=== PATIENT | female | born 2000 | race Two or more races ===

== ENCOUNTER 2024-12-12 00:05 | Emergency (ER) | payer MEDICAID, OTHER, SELFPAY ==
--- NOTE | ~2024-12-12 | XR_ITS ---
CLINICAL HISTORY: 4th toe swelling 3 views left foot Comparison: None Findings: There is no fracture or dislocation. Joint spaces appear normal. There is no radiographic evidence of osteomyelitis.There is no radiopaque foreign body. Impression: Unremarkable left foot radiographs. This document has been electronically signed by: Lon Beaulieu MD on 12/12/2024 03:30:03
[2024-12-12 00:25] VITALS: BP 110/61; PULSE 91; RESP 14; TEMP 37; O2SAT 98; BMI 20.1
--- NOTE | 2024-12-12 02:03 | ED_ITS ---
HPI - Extremity Injury (Lower) General Chief Complaint: Extremity Injury, Lower Stated Complaint: left foot 4th toe hurts Time Seen by Provider: 12/12/24 01:54 Source: patient Mode of arrival: ambulatory Limitations: no limitations History of Present Illness ED Provider: Dr. Anjelica Honeycutt HPI Narrative: Patient comes to the emergency room complaining of pain redness and swelling of the 4th toe on the left foot. Patient denies any injury. Patient states that it is very itchy and it hurts. Patient denies fever chills. Patient denies any localized trauma. Patient states that wearing shoes hurts Related Data Previous Rx's ?Medication ?Instructions ?Recorded cefuroxime axetil 500 mg tablet 500 mg PO BID #14 tabs 12/12/24 doxycycline hyclate 100 mg tablet 100 mg PO BID #14 tabs 12/12/24 Allergies Allergy/AdvReac Type Severity Reaction Status Date / Time No Known Allergies Allergy Verified 12/12/24 00:28 Review of Systems 2 Review of Systems: Constitutional : No Weight loss, No Fever, No Chills, No Night Sweats, No Fatigue, No Malaise ENT/Mouth : No Hearing loss, No Ear Pain, No Nasal Congestion, No Sinus Pain, No Hoarseness, No sore throat, No Rhinorrhea, No Swallowing Difficulty Eyes: No Eye Pain, No Swelling, No Redness, No Foreign Body, No Discharge, No Vision Changes Cardiovascular : No Chest Pain, No SOB, No Dyspnea on Exertion, No Orthopnea, No Edema, No Palpitations Respiratory : No Cough, No Sputum, No Wheezing, No Smoke Exposure, No Dyspnea Gastrointestinal : No Nausea, No Vomiting, No Diarrhea, No Constipation, No abdominal Pain, No Hematochezia, No Melena Genitourinary : no irregular bleeding, No Dysuria, No Urinary Frequency, No Hematuria, No Urinary Incontinence, No Urgency, No Flank Pain, No Urinary Flow Changes, No Hesitancy Musculoskeletal : No joint pain, No Myalgias, No Joint Swelling Skin : Complaining of left 4th toe pain swelling and itching Neuro : No Weakness, No Numbness, No Paresthesias, No Loss of Consciousness, No Dizziness, No Headache Psych : No Anxiety/Panic, No Depression, No SI/HI/AH/VH, No Social Issues, Heme/Lymph: No Bruising, No Bleeding,No Lymphadenopathy Endocrine : No Polyuria, No Polydipsia, No Temperature Intolerance [facility] Social History Social History Smoked in Last 30 Days: No Use of substances other than those prescribed or required for medical reasons: No Advance Directives: No Advance Directives Information Provided: Yes Do you have a plan to hurt others: No Plan Physical Exam 2 Vital Signs: Vital Signs: Last Vital Signs Temp 98.6 F 12/12/24 00:25 Pulse 91 12/12/24 00:25 Resp 14 12/12/24 00:25 BP 110/61 12/12/24 00:25 Pulse Ox 98 12/12/24 00:25 O2 Del Method Room Air 12/12/24 00:25 BMI result Body Mass Index 20.1 Const: Other: Appearance: Alert. Oriented X3. No acute distress. Eyes: Pupils equal, round and reactive to light. ENT: Pharynx normal. Neck: Normal inspection. Neck supple. No lymph nodes noted. No crepitus CVS: Normal heart rate and rhythm. Pulses normal. Normal S1 and S2 Respiratory: No respiratory distress. Breath sounds normal. No Wheezing. No rales Abdomen: Soft and nontender. No rigidity. No distention. Skin: Skin warm and dry. Normal skin color. Normal skin turgor. See extremities below Extremities: No lower extremity edema. No Lacerations. No Rash. Patient's 4th toe on the left foot on the dorsum looks erythematous, small fluctuance present on the dorsum of the toe, tender to palpation. Neuro: Oriented X 3. No motor deficit. No sensory deficit. Moving all extremities. No slurred speech. CN 2 through 12 grossly intact Psych: calm, cooperative, normal affect Course Course Course Narrative: X-rays and labs pending Medical Decision Making Medical Decision Making [facility] Narrative: Patient's white blood cell count 11.4 chemistry does not show any acute abnormality, ESR and CRP slightly bumped. Dorsum of the toe of the left foot has a bit of fluid in the dorsum. Patient was numbed with 1% lidocaine 1 mL, 2 mm incision was done, only serosanguineous fluid was drained. No pus. Patient was given the 1st dose of doxycycline and cefuroxime p.o.. Patient instructed to not use toes are close toe shoes Lab Data [facility] Lab Attestation statement: I reviewed the patient's lab results. 12/12/24 02:26 12/12/24 02:26 Labs: Lab Results 12/12/24 Range/Units 02:26 WBC 11.4 H (4.8-10.8) X10*3/uL RBC 4.44 (4.20-5.50) X10*6/uL Hgb 11.7 L (12.0-16.0) g/dl Hct 35.0 L (37.0-47.0) % MCV 78.8 L (80.0-98.0) fL MCH 26.4 L (27.0-33.0) pg MCHC 33.4 (31.0-35.0) g/dl RDW 12.8 (11.0-16.0) % Plt Count 188 (160-400) X10*3/uL MPV 11.7 (9.4-12.3) fL Immature Gran % (Auto) 0.4 (0.0-0.4) % Neut % (Auto) 69.6 (45-73) % Lymph % (Auto) 20.2 (20-40) % [place] % (Auto) 8.7 (2-11) % Eos % (Auto) 0.9 (0-4) % Baso % (Auto) 0.2 (0-2) % Lymph # (Auto) 2.3 (1.2-4.9) X10*3/uL [place] # (Auto) 1.0 (0.1-1.2) X10*3/uL Eos # (Auto) 0.1 (0.0-0.4) X10*3/uL Baso # (Auto) 0.0 (0.0-0.2) X10*3/uL Abs Immat Gran (auto) 0.04 H (0.00-0.03) X10*3/uL Absolute Neuts (auto) 8.0 (2.0-8.3) x10*3/uL Absolute Nucleated RBC 0.000 (0.0-0.012) X10*3/uL Nucleated RBC % (auto) 0.0 (0.0-0.2) /100WBC ESR 7 (0-20) MM/HR Sodium 139 (135-145) mmol/L Potassium 3.8 (3.3-5.1) mmol/L Chloride 111 H (96-108) mmol/L Carbon Dioxide 19 L (22-29) mmol/L Anion Gap 13 (12-20) BUN 14 (9-16) mg/dL Creatinine 0.62 (0.5-1.4) mg/dL Estim Creat Clear Calc 125.0 Estimated GFR > 60 Random Glucose 110 (60-115) mg/dL Uric Acid 3.4 (2.4-5.7) mg/dL Calcium 8.9 (8.4-10.2) mg/dL C-Reactive Protein 2.18 H (< or = 0.50) mg/dL Discharge Plan Discharge Clinical Impression: Cellulitis of fourth toe Patient Disposition: Home, Self-Care Instructions: Cellulitis (ED) Additional Instructions: Please follow-up with your primary care physician tomorrow. If you have any worsening or new symptoms, please return to the emergency room or call 911 Prescriptions: New doxycycline hyclate 100 mg tablet 100 mg PO BID Qty: 14 0RF cefuroxime axetil 500 mg tablet 500 mg PO BID Qty: 14 0RF Print Language: Maori
[2024-12-12 02:32] LABS: Basophils Percent Auto 0.2 % (0-2); Eosinophils Absolute Auto 0.1 X10*3/uL (0.0-0.4); Eosinophils Percent Auto 0.9 % (0-4); Hemoglobin 11.7 g/dl (12.0-16.0); Imm Gran Abs Auto 0.04 X10*3/uL (0.00-0.03); Imm Gran Pct Auto 0.4 % (0.0-0.4); Lymphocytes Absolute Auto 2.3 X10*3/uL (1.2-4.9); Lymphocytes Percent Auto 20.2 % (20-40); MANUAL DIFF FLAG NO; Mean Corpuscular HGB Conc 33.4 g/dl (31.0-35.0); Mean Corpuscular Hemoglobin 26.4 pg (27.0-33.0); Mean Corpuscular Volume 78.8 fL (80.0-98.0); Mean Platelet Volume 11.7 fL (9.4-12.3); Monocytes Percent Auto 8.7 % (2-11); Neutrophils Percent Auto 69.6 % (45-73); Platelet Count 188 X10*3/uL (160-400); Red Blood Count 4.44 X10*6/uL (4.20-5.50); Red Cell Distribution Width 12.8 % (11.0-16.0); White Blood Count 11.4 X10*3/uL (4.8-10.8)
[2024-12-12 02:46] LABS: Anion Gap 13 (12-20); Blood Urea Nitrogen 14 mg/dL (9-16); C Reactive Protein 2.18 mg/dL (< or = 0.50); Calcium 8.9 mg/dL (8.4-10.2); Carbon Dioxide 19 mmol/L (22-29); Chloride 111 mmol/L (96-108); Estimated Glomerular Filt Rate > 60; Glucose Random 110 mg/dL (60-115); Potassium 3.8 mmol/L (3.3-5.1); Sodium 139 mmol/L (135-145); Uric Acid 3.4 mg/dL (2.4-5.7)
[2024-12-12 03:09] LABS: Erythrocyte Sedimentation Rate 7 MM/HR (0-20)
[2024-12-12] MEDS: Lidocaine HCl 1 % MPF 5 ML VIAL SUBCUT (04:29)
[2024-12-12] MEDS: cefuroxime axetiL 500 MG TABLET PO (04:30)
[2024-12-12] MEDS: Doxycycline Monohydrate 100 MG CAPSULE PO (04:30)
[2024-12-12 04:32] VITALS: BP 104/58; PULSE 89; RESP 12; TEMP 36.9; O2SAT 100
[2024-12-12 04:36] VITALS: BP 104/58; PULSE 89; RESP 12; TEMP 36.9; O2SAT 100
== END 2024-12-12 04:38 | disposition home or self-care (01) ==
PROVIDERS: Emergency Provider Emergency Medicine
DX: L03.032 Cellulitis of left toe (principal); M79.675 Pain in left toe(s)
CPT/HCPCS: 10060; 36415; 73630; 80048; 84550; 85025; 85652; 86140; 99284; J2003

== ENCOUNTER → 2024-12-12 00:30 | Outpatient (BNV) | payer SELFPAY | PROVIDERS: Emergency Provider Emergency Medicine; Visit Provider Radiology Diagnostic Radiology | DX: R22.42 Localized swelling, mass and lump, left lower limb (principal) | CPT/HCPCS: 73630 ==

== ENCOUNTER 2024-12-16 19:30 | Outpatient (REF) | payer MEDICAID, OTHER, SELFPAY | END 2024-12-16 19:31 | disposition home or self-care (01) | LOC: HO.LNP 19:30 | PROVIDERS: Visit Provider Emergency Medicine | DX: R23.8 Other skin changes (principal); R89.5 Abnormal microbiological findings in specimens from other organs, systems and tissues | CPT/HCPCS: 87070; 87077; 87147; 87186; 87205 ==

== ENCOUNTER 2024-12-16 20:18 | Emergency (ER) | payer MEDICAID, OTHER, SELFPAY ==
[2024-12-16 20:21] VITALS: BP 118/53; PULSE 89; RESP 18; TEMP 37.1; O2SAT 100; BMI 21.8
--- NOTE | 2024-12-16 20:22 | ED_ITS ---
HPI - General Adult General Chief complaint: Skin/Abscess/Foreign Body Stated complaint: itchy toes Time Seen by Provider: 12/16/24 22:51 Related Data Previous Rx's ?Medication ?Instructions ?Recorded cefuroxime axetil 500 mg tablet 500 mg PO BID #14 tabs 12/12/24 doxycycline hyclate 100 mg tablet 100 mg PO BID #14 tabs 12/12/24 bacitracin 500 unit/gram topical 1 appl topical BID skin rash #14 12/17/24 ointment grams clindamycin HCl 300 mg capsule 300 mg PO Q6H Cellulitis #30 caps 12/17/24 Allergies Allergy/AdvReac Type Severity Reaction Status Date / Time No Known Allergies Allergy Verified 12/16/24 20:23 PMFSH Social History Social History Advance Directives: No Advance Directives Information Provided: No Do you have a plan to hurt others: No Plan Physical Exam ED Vital Signs: Vital Signs - 24 hr 12/16/24 20:21 Temperature 98.8 F Pulse Rate 89 Respiratory Rate 18 Blood Pressure 118/53 L Pulse Oximetry 100 Oxygen Delivery Method Room Air BMI result Body Mass Index 21.8 Course Course Course Narrative: This is a rapid medical exam performed by Irma Bradford NP: Additional HPI, ROS, PE not included below will be deferred to primary provider. Patient is a 24-year-old female referred to the ED by PCP for evaluation of cellulitis to left foot/4th toe. Has been on Ceftin and doxy, but erythema spreading. Plan: labs Medical Decision Making Lab Data 12/16/24 20:46 12/16/24 20:46 Labs: Lab Results 12/16/24 Range/Units 20:46 WBC 7.5 (4.8-10.8) X10*3/uL RBC 4.44 (4.20-5.50) X10*6/uL Hgb 11.7 L (12.0-16.0) g/dl Hct 35.3 L (37.0-47.0) % MCV 79.5 L (80.0-98.0) fL MCH 26.4 L (27.0-33.0) pg MCHC 33.1 (31.0-35.0) g/dl RDW 12.8 (11.0-16.0) % Plt Count 211 (160-400) X10*3/uL MPV 11.8 (9.4-12.3) fL Immature Gran % (Auto) 0.3 (0.0-0.4) % Neut % (Auto) 67.1 (45-73) % Lymph % (Auto) 23.5 (20-40) % [place] % (Auto) 8.6 (2-11) % Eos % (Auto) 0.4 (0-4) % Baso % (Auto) 0.1 (0-2) % Lymph # (Auto) 1.8 (1.2-4.9) X10*3/uL [place] # (Auto) 0.7 (0.1-1.2) X10*3/uL Eos # (Auto) 0.0 (0.0-0.4) X10*3/uL Baso # (Auto) 0.0 (0.0-0.2) X10*3/uL Abs Immat Gran (auto) 0.02 (0.00-0.03) X10*3/uL Absolute Neuts (auto) 5.1 (2.0-8.3) x10*3/uL Absolute Nucleated RBC 0.000 (0.0-0.012) X10*3/uL Nucleated RBC % (auto) 0.0 (0.0-0.2) /100WBC ESR 6 (0-20) MM/HR Sodium 138 (135-145) mmol/L Potassium 3.6 (3.3-5.1) mmol/L Chloride 110 H (96-108) mmol/L Carbon Dioxide 22 (22-29) mmol/L Anion Gap 10 L (12-20) BUN 16 (9-16) mg/dL Creatinine 0.64 (0.5-1.4) mg/dL Estim Creat Clear Calc 126.8 Estimated GFR > 60 Random Glucose 86 (60-115) mg/dL Calcium 9.5 D (8.4-10.2) mg/dL Total Bilirubin 0.2 (0.0-1.0) mg/dL AST 21 (5-31) U/L ALT 16 (0-31) U/L Alkaline Phosphatase 63 (39-117) U/L C-Reactive Protein 0.23 (< or = 0.50) mg/dL Total Protein 7.4 (6.5-8.0) g/dL Albumin 4.3 (3.5-5.0) g/dL Discharge Plan Discharge Clinical Impression: Cellulitis Patient Disposition: Home, Self-Care Instructions: Cellulitis (ED) Additional Instructions: elevate warm soak. Close follow-up on an outpatient basis. Prescriptions: New clindamycin HCl 300 mg capsule 300 mg PO Q6H Qty: 30 0RF bacitracin 500 unit/gram ointment 1 appl topical BID Qty: 14 0RF No Action doxycycline hyclate 100 mg tablet 100 mg PO BID Qty: 14 0RF cefuroxime axetil 500 mg tablet 500 mg PO BID Qty: 14 0RF Referrals: [facility] [Physician] - 12/21/24 Print Language: Persian
[2024-12-16 20:52] LABS: MANUAL DIFF FLAG NO
[2024-12-16 20:54] LABS: Basophils Percent Auto 0.1 % (0-2); Eosinophils Percent Auto 0.4 % (0-4); Hematocrit 35.3 % (37.0-47.0); Hemoglobin 11.7 g/dl (12.0-16.0); Imm Gran Abs Auto 0.02 X10*3/uL (0.00-0.03); Imm Gran Pct Auto 0.3 % (0.0-0.4); Lymphocytes Absolute Auto 1.8 X10*3/uL (1.2-4.9); Lymphocytes Percent Auto 23.5 % (20-40); Mean Corpuscular HGB Conc 33.1 g/dl (31.0-35.0); Mean Corpuscular Hemoglobin 26.4 pg (27.0-33.0); Mean Corpuscular Volume 79.5 fL (80.0-98.0); Mean Platelet Volume 11.8 fL (9.4-12.3); Monocytes Absolute Auto 0.7 X10*3/uL (0.1-1.2); Monocytes Percent Auto 8.6 % (2-11); Neutrophils Absolute Auto 5.1 x10*3/uL (2.0-8.3); Neutrophils Percent Auto 67.1 % (45-73); Platelet Count 211 X10*3/uL (160-400); Red Blood Count 4.44 X10*6/uL (4.20-5.50); Red Cell Distribution Width 12.8 % (11.0-16.0); White Blood Count 7.5 X10*3/uL (4.8-10.8)
[2024-12-16 21:09] LABS: Alanine Aminotransferase 16 U/L (0-31); Albumin Level 4.3 g/dL (3.5-5.0); Alkaline Phosphatase 63 U/L (39-117); Anion Gap 10 (12-20); Aspartate Amino Transferase 21 U/L (5-31); Bilirubin Total 0.2 mg/dL (0.0-1.0); Blood Urea Nitrogen 16 mg/dL (9-16); C Reactive Protein 0.23 mg/dL (< or = 0.50); Calcium 9.5 mg/dL (8.4-10.2); Carbon Dioxide 22 mmol/L (22-29); Chloride 110 mmol/L (96-108); Creatinine Clr Calc Pharmacy 126.8; Estimated Glomerular Filt Rate > 60; Glucose Random 86 mg/dL (60-115); Potassium 3.6 mmol/L (3.3-5.1); Sodium 138 mmol/L (135-145); Total Protein 7.4 g/dL (6.5-8.0)
[2024-12-16 21:40] LABS: Erythrocyte Sedimentation Rate 6 MM/HR (0-20)
--- NOTE | 2024-12-17 00:19 | ED_ITS ---
HPI - Skin/Abscess/Foreign Bdy General Chief complaint: Skin/Abscess/Foreign Body Stated complaint: itchy toes Time Seen by Provider: 12/16/24 22:51 History of Present Illness HPI narrative: patient is a 24-year-old female was seen on the for a extensor surface left toe lesion. Had an I&D done. Placed on cefuroxime and doxycycline. Patient went to follow-up with her primary. Was noted to have redness now in digits 2 through 5. The 4th toe looks about the same. There is no systemic effect. No fever no chills. Patient is from home. Came from [facility] about a year ago. Lives in this area. Works in a restaurant. No nausea no vomiting. Patient is from home. Related Data Previous Rx's ?Medication ?Instructions ?Recorded cefuroxime axetil 500 mg tablet 500 mg PO BID #14 tabs 12/12/24 doxycycline hyclate 100 mg tablet 100 mg PO BID #14 tabs 12/12/24 clindamycin HCl 300 mg capsule 300 mg PO Q6H Cellulitis #30 caps 12/17/24 Allergies Allergy/AdvReac Type Severity Reaction Status Date / Time No Known Allergies Allergy Verified 12/16/24 20:23 Review of Systems 2 Review of Systems: No fever no chills no chest pain or shortness of breath Yes all other systems are reviewed and are negative [facility] Past Medical History Attestation statement: The following information was validated with the patient. Social History Social History Advance Directives: No Advance Directives Information Provided: No Do you have a plan to hurt others: No Plan Physical Exam 2 Vital Signs: Vital Signs: Last Vital Signs Temp 98.8 F 12/16/24 20:21 Pulse 89 12/16/24 20:21 Resp 18 12/16/24 20:21 BP 118/53 L 12/16/24 20:21 Pulse Ox 100 12/16/24 20:21 O2 Del Method Room Air 12/16/24 20:21 BMI result Body Mass Index 21.8 Appearance: Alert. Oriented X3. No acute distress. Eyes: Pupils equal, round and reactive to light. ENT: Pharynx normal. Neck: Normal inspection. Neck supple. No lymph nodes noted. No crepitus CVS: Normal heart rate and rhythm. Pulses normal. Normal S1 and S2 Respiratory: No respiratory distress. Breath sounds normal. No Wheezing. No rales Abdomen: Soft and nontender. No rigidity. No distention. good BS x4 Skin: Skin warm and dry. Normal skin color. Normal skin turgor. Extremities: No lower extremity edema. examination of the left foot showed good sensation in the foot. Capillary refill less than 2 seconds. There is good pulses at dorsalis pedis 2+. The distal extensor surface of the 4th toe has an area of redness. There is no purulent discharge noted. The 2nd,3rd, Fifth toe extensor surface have some redness. blanching. Neuro: Oriented X 3. No motor deficit. No sensory deficit. Moving all extermities. No slurred speech Medical Decision Making Medical Decision Making [facility] Narrative: Positive redness to now digits 2 through 5. However patient's white count is normal. Patient's sed rate and CRP are both normal. Had x-ray done a few days ago there were grossly negative. Patient is 24 years old otherwise healthy. No significant past medical history. Will start patient on clindamycin. Have patient closely follow up on an outpatient basis. Currently in stable condition. Patient has good pulses. Good sensation. Good motor. In no acute distress. Differential Diagnosis Differential Diagnoses: The differential diagnosis associated with the presentation includes Cellulitis versus abscess Admission/Observation Consideration of admission/observation: Escalation of care including admission/observation considered Lab Data [facility] Lab Attestation statement: I reviewed the patient's lab results. 12/16/24 20:46 12/16/24 20:46 Labs: Lab Results 12/16/24 Range/Units 20:46 WBC 7.5 (4.8-10.8) X10*3/uL RBC 4.44 (4.20-5.50) X10*6/uL Hgb 11.7 L (12.0-16.0) g/dl Hct 35.3 L (37.0-47.0) % MCV 79.5 L (80.0-98.0) fL MCH 26.4 L (27.0-33.0) pg MCHC 33.1 (31.0-35.0) g/dl RDW 12.8 (11.0-16.0) % Plt Count 211 (160-400) X10*3/uL MPV 11.8 (9.4-12.3) fL Immature Gran % (Auto) 0.3 (0.0-0.4) % Neut % (Auto) 67.1 (45-73) % Lymph % (Auto) 23.5 (20-40) % [place] % (Auto) 8.6 (2-11) % Eos % (Auto) 0.4 (0-4) % Baso % (Auto) 0.1 (0-2) % Lymph # (Auto) 1.8 (1.2-4.9) X10*3/uL [place] # (Auto) 0.7 (0.1-1.2) X10*3/uL Eos # (Auto) 0.0 (0.0-0.4) X10*3/uL Baso # (Auto) 0.0 (0.0-0.2) X10*3/uL Abs Immat Gran (auto) 0.02 (0.00-0.03) X10*3/uL Absolute Neuts (auto) 5.1 (2.0-8.3) x10*3/uL Absolute Nucleated RBC 0.000 (0.0-0.012) X10*3/uL Nucleated RBC % (auto) 0.0 (0.0-0.2) /100WBC ESR 6 (0-20) MM/HR Sodium 138 (135-145) mmol/L Potassium 3.6 (3.3-5.1) mmol/L Chloride 110 H (96-108) mmol/L Carbon Dioxide 22 (22-29) mmol/L Anion Gap 10 L (12-20) BUN 16 (9-16) mg/dL Creatinine 0.64 (0.5-1.4) mg/dL Estim Creat Clear Calc 126.8 Estimated GFR > 60 Random Glucose 86 (60-115) mg/dL Calcium 9.5 D (8.4-10.2) mg/dL Total Bilirubin 0.2 (0.0-1.0) mg/dL AST 21 (5-31) U/L ALT 16 (0-31) U/L Alkaline Phosphatase 63 (39-117) U/L C-Reactive Protein 0.23 (< or = 0.50) mg/dL Total Protein 7.4 (6.5-8.0) g/dL Albumin 4.3 (3.5-5.0) g/dL External Record Review External record reviewed: Outpatient record Social Determinants Patient?s care significantly limited by Social Determinants of Health including: Problems related to primary support group Discharge Plan Discharge Clinical Impression: Cellulitis Patient Disposition: Home, Self-Care Instructions: Cellulitis (ED) Additional Instructions: elevate warm soak. Close follow-up on an outpatient basis. Prescriptions: New clindamycin HCl 300 mg capsule 300 mg PO Q6H Qty: 30 0RF No Action doxycycline hyclate 100 mg tablet 100 mg PO BID Qty: 14 0RF cefuroxime axetil 500 mg tablet 500 mg PO BID Qty: 14 0RF Referrals: [facility] [Physician] - 12/21/24 Print Language: Latvian
[2024-12-17 00:57] VITALS: BP 118/53; PULSE 89; RESP 18; TEMP 37.1; O2SAT 100
== END 2024-12-17 00:58 | disposition home or self-care (01) ==
PROVIDERS: Registered Nurse Emergency; Emergency Provider Emergency Medicine Emergency Medical Services
DX: L03.032 Cellulitis of left toe (principal); L29.9 Pruritus, unspecified; Z79.899 Other long term (current) drug therapy
CPT/HCPCS: 36415; 80053; 85025; 85652; 86140; 99283; 99284

== ENCOUNTER 2025-02-03 10:33 | Outpatient (REF) | payer MEDICAID, OTHER, SELFPAY ==
[2025-02-03 11:51] LABS: MANUAL DIFF FLAG NO
[2025-02-03 12:01] LABS: Basophils Percent Auto 0.2 % (0-2); Eosinophils Absolute Auto 0.1 X10*3/uL (0.0-0.4); Eosinophils Percent Auto 1.2 % (0-4); Hematocrit 39.2 % (37.0-47.0); Hemoglobin 12.6 g/dl (12.0-16.0); Imm Gran Abs Auto 0.01 X10*3/uL (0.00-0.03); Imm Gran Pct Auto 0.2 % (0.0-0.4); Lymphocytes Absolute Auto 1.4 X10*3/uL (1.2-4.9); Lymphocytes Percent Auto 26.7 % (20-40); Mean Corpuscular HGB Conc 32.1 g/dl (31.0-35.0); Mean Corpuscular Hemoglobin 26.4 pg (27.0-33.0); Mean Corpuscular Volume 82.2 fL (80.0-98.0); Mean Platelet Volume 12.5 fL (9.4-12.3); Monocytes Absolute Auto 0.4 X10*3/uL (0.1-1.2); Monocytes Percent Auto 8.6 % (2-11); Neutrophils Absolute Auto 3.3 x10*3/uL (2.0-8.3); Neutrophils Percent Auto 63.1 % (45-73); Platelet Count 186 X10*3/uL (160-400); Red Blood Count 4.77 X10*6/uL (4.20-5.50); Red Cell Distribution Width 13.4 % (11.0-16.0); White Blood Count 5.1 X10*3/uL (4.8-10.8)
--- OUTSIDE RECORDS SUMMARY | 2025-02-03 12:11 | XMS_ITS | Clinical Summary ---
Author Organization [employer] Address [address] [place] [address] Care Team Providers Care Propagator Laborer Name Role Phone Karen Regalado MD Primary Care Provider + Allergies No known active allergies Medications norelgestromin-e thinyl estradiol (Xulane) 150-35 MCG/24HR Apply 1 patch each week for 3 weeks, then remove for 1 week. 3 patch 12 02/03/2025 Active Active Problems Problem Noted Date Diagnosed Date Contraceptive education 02/03/2025 Assessment & Plan (02/03/2025 12:05 PM EDT): I discussed with patient at length regarding different type of contraceptives including barrier, hormonal and nonhormonal. She decided to start her on hormonal patch and I gave her information for IUD and Nexplanon and I will follow-up with her in 6 to 8 weeks to see if she wants to be referred to any of these procedures. I have stressed the importance of using condoms at all times in order to prevent STDs Order labs and follow-up with me in 6 to 8 weeks Anemia 12/16/2024 Assessment & Plan (02/03/2025 12:04 PM EDT): Order labs and follow-up in 6 to 8 weeks Encounters Date Type Department Care Team Description 02/03/2025 9:30 AM EDT Office Visit [facility] [address] [place] [address] Karen Regalado MD Anemia, unspecified type (Primary Dx); Contraceptive education 02/03/2025 Travel 02/01/[address] [address] Jacquelyn Gonzalez MA Chart prep 01/27/2025 Patient Outreach [facility] [address] [place] [address] Karen Regalado MD Pre-visit Planning (SDOH unable to reach LVM ) 12/24/[address] [address] Jacquelyn Gonzalez MA Appointment Request 12/17/2024 Telephone [facility] [address] [place] [phone] Gabby Moeller, JAMES Results; [facility] eval 12/16/24 12/17/2024 Patient Outreach [address] [address] Karen Regalado MD Pre-visit Planning ((Unable to reach for PVP screening, LVM)) 12/16/2024 6:00 PM EST Office Visit [facility] [address] [place] [phone] Moshe Pozo MD Change of skin color (Primary Dx) 12/16/2024 Orders Only [facility] [address] [place] [phone] Moshe Pozo MD 11/16/[address] [phone] Karen Regalado MD New pt appt from Last 3 Months Family History Medical History Relation Name Comments No Known Problems Father htn Mother Relation Name Status Comments Father Mother Social History Tobacco Use Types Packs/Day Years Used Date Smoking Tobacco: Never Smokeless Tobacco: Never Tobacco Cessation:Counseling Given: Not Answered Alcohol Use Standard Drinks/Week Comments Yes 0 (1 standard drink = 0.6 oz pur e alcohol) social, few times per year Housing Stability Answer Date Recorded What is your housing situation today? I have johnny ellen 02/03/[address] you li ve. Do you have problems with any of the following? None of the above 02/03/2025 Food Insecurity Answer Date Recorded Within the past 12 months, y ou worried that your food would run out before you got money to buy more: Never True 02/03/2025 Within the past 12 months,th e food you bought just didn't last and you didn't have enough money to get more: Never True 10/2025 Transportation Answer Date Recorded In the past 12 months, has l ack of transportation kept you from medical appts, meetings, work or from getting things needed for daily living? No 02/03/2025 Utilities Answer Date Recorded In the past 12 months, has t he electric, gas, oil or water company threatened to shut off services in your home? No 02/03/2025 Depression Answer Date Recorded Patient Health Questionnaire-2 Score 0 02/03/2025 Internet Access Answer Date Recorded Internet Access Q1 No 02/03/2025 Internet Access Q2 I do not want or need it 01/23 Comments No Sex and Gender Information Value Date Recorded Sex Assigned at Female 05/22/2024 8:58 AM EDT Legal Sex Female 9:26 AM EDT Gender Identity Female 05/22/2024 8:58 AM EDT Sexual Orientation Something else 02/02/2025 9: 27 PM EDT Sexual Orientation Straight 02/02/2025 9: 27 PM EDT Last Filed Vital Signs Vital Sign Reading Time Taken Comments Blood Pressure 113/64 02/03/2025 9:20 AM EDT Pulse 79 02/03/2025 9:20 AM EDT Temperature 35.3 ??C (95.6 ??F) 02/03/2025 9:20 AM ED T Respiratory Rate 20 12/16/2024 6:21 PM EST Oxygen Saturation 100% 02/03/2025 9:20 AM EDT Inhaled Oxygen Concentration - - Weight 55.1 kg (121 lb 6 oz) 02/03/2025 9:20 AM EDT Height 165.7 cm (5' 5.25 ) 02/03/2025 9:20 AM ED T Body Mass Index 20.04 02/03/2025 9:20 AM EDT Plan of Treatment Upcoming Encounters Date Type Department Care Team (Late st Contact Info) Description 2025 9:00 AM EDT Office Visit [facility] [address] [place] [address] Karen Regalado MD [address] [place] [address] Health Maintenance Due Date Last Done Comments HIV Screening 2000 Alcohol/Substance Use Screening 2012 Family Planning (PISQ) 2015 HPV Vaccines (1 - 3-dose series) 2015 Hepatitis C Screening 2018 DTaP/Tdap/Td Vaccines (1 - Tdap) 2019 Hepatitis B Vaccines (1 of 3 - 19+ 3-dose series) 2019 Pap Smear 2021 COVID-19 Vaccine (1 - 2023-2 5 season) 2024 Influenza Vaccine (#1) 2024 Depression Screening 02/03/2026 02/03/2025, 02/03/2025 SDOH Screening 02/03/2026 02/03/2025 Tobacco Screening 02/03/2026 02/03/2025 Zoster Vaccines (1 of 2) 2050 RSV Patients and Patients Aged 60 years or older (1 - 1-dose 75+ series) 2075 HIB Vaccines Aged Out No longer eligi ble based on patient's age to complete this topic Hepatitis A Vaccines Aged Out No long er eligible based on patient's age to complete this topic IPV Vaccines Aged Out No longer eligi ble based on patient's age to complete this topic Meningococcal Vaccine Aged Out No lillie shaquille eligible based on patient's age to complete this topic Pneumococcal Vaccine: Pediatrics (0 to 5 Years) and At-Risk Patients (6 to 49) Years) Aged Out No longer eligible b ased on patient's age to complete this topic RSV under 20 months Aged Out No longe r eligible based on patient's age to complete this topic Rotavirus Vaccines Aged Out No longer eligible based on patient's age to complete this topic Procedures Procedure Name Priority Date/Time Associated Diagnosis Comments CBC WITH AUTO DIFFERENTIAL Routine 02/03/2025 10:40 AM EDT Anemia, unspecified type GRAM STAIN Routine 12/16/2024 7:18 PM EST from Last 3 Months Results * (ABNORMAL) CBC auto differential (02/03/2025 10:40 AM EDT) White Blood Count 5.1 4.8 - 10.8 X10*3/uL [facility] Red Blood Count 4.77 4.20 - 5.50 X10*6/uL [facility] Hemoglobin 12.6 12.0 - 16.0 g/dl [facility] Hematocrit 39.2 37.0 - 47.0 % [facility] Mean Corpuscular Volume 82.2 80.0 - 98.0 fL [facility] Mean Corpuscular Hemoglobin 26.4(L) 27.0 - 33.0 pg [facility] Mean Corpuscular HGB Conc 32.1 31.0 - 35.0 g/dl [facility] Red Cell Distribution Width 13.4 11.0 - 16.0 % [facility] Platelet Count 186 160 - 400 X10*3/uL [facility] Mean Platelet Volume 12.5(H) 9.4 - 12.3 fL [facility] Neutrophils Percent Auto 63.1 45 - 73 % [facility] Imm Gran Pct Auto 0.2 0.0 - 0.4 % [facility] Lymphocytes Percent Auto 26.7 20 - 40 % [facility] Monocytes Percent Auto 8.6 2 - 11 % [facility] Eosinophils Percent Auto 1.2 0 - 4 % [facility] Basophils Percent Auto 0.2 0 - 2 % [facility] NRBC Pct Auto 0.0 0.0 - 0.2 /100WBC [facility] Neutrophils Absolute Auto 3.3 2.0 - 8.3 x10*3/uL [facility] Imm Gran Abs Auto 0.01 0.00 - 0.03 X10*3/uL [facility] Lymphocytes Absolute Auto 1.4 1.2 - 4.9 X10*3/uL [facility] Monocytes Absolute Auto 0.4 0.1 - 1.2 X10*3/uL [facility] Eosinophils Absolute Auto 0.1 0.0 - 0.4 X10*3/uL [facility] Basophils Absolute Auto 0.0 0.0 - 0.2 X10*3/uL [facility] NRBC Abs Auto 0.000 0.0 - 0.012 X10*3/uL [facility] Blood Venous blood specimen / Unknown 02/03/2025 10:40 AM EDT 02/03/2025 11:45 AM EDT Karen Regalado MD LAB BLOOD ORDERABLES Fin al Result Performing Organization Address [facility] Co de Phone Number [facility] [address] [place] [phone] * Gram stain (12/16/2024 7:18 PM EST) 12/16/2024 7:18 PM EST 12/17/2024 11:48 AM EST Comment:Skin Narrative [facility] - 12/21/2024 7:30 AM EST LEFT FOURTH TOE Gram stain results: No polys 2+ epithelial cells 2+ Gram-positive cocci LEFT FOURTH TOE Staphylococcus aureus Quant Org ID 1+ Coag negative Staphylococcus Quant Org ID 3+ Susc N/A Susceptibility not routinely performed on this isolate. Staphylococcus aureus: Clindamycin <=0.25(S) Staphylococcus aureus: Erythromycin <=0.25(S) Staphylococcus aureus: Levofloxacin <=0.12(S) Staphylococcus aureus: Oxacillin <=0.25(S) Staphylococcus aureus: Penicillin-G 0.12(S) Staphylococcus aureus: Tetracycline <=1(S) Staphylococcus aureus: Trimethoprim/Sulfamethoxazole <=10(S) Specimen Source: Skin (scrapings) us Moshe Pozo MD LAB MICROBIOLOGY - GENERAL ORDER SNOW Final Result Performing Organization Address [facility] Co de Phone Number [facility] [address] [place] [phone] from Last 3 Months Insurance [employer] Cost Effective [employer] Care Teams Propagator Laborer Relationship Specialty Start Date End Date Karen Regalado MD [address] [place], [place] PCP - General Internal Medicine 02/03/25
--- OUTSIDE RECORDS SUMMARY | 2025-02-03 12:11 | XMS_ITS | Encounter Summary ---
Author Organization [employer] Address [address] [facility] [address] [place] [address] Care Team Providers Care Boomswing Operator Name Role Phone Karen Regalado MD Primary Care Provider + Reason for Visit * Reason Comments New patient appointment Encounter Details Date Type Department Care Team ([facility] st Contact Info) Description 02/03/2025 9:30 AM EDT Office Visit [facility] MEDICINE [address] [place] [address] Karen Regalado MD [address] [place] [address] Anemia, unspecified type (Primary Dx); Contraceptive education Social History Tobacco Use Types Packs/Day Years Used Date Smoking Tobacco: Never Smokeless Tobacco: Never Tobacco Cessation:Counseling Given: Not Answered Alcohol Use Standard Drinks/Week Comments Yes 0 (1 standard drink = 0.6 oz pur e alcohol) social, few times per year Housing Stability Answer Date Recorded What is your housing situation today? I have johnny hughes 02/03/[address] you li [...] Orientation Straight 02/02/2025 9: 27 PM EDT documented as of this encounter Last Filed Vital Signs Vital Sign Reading Time Taken Comments Blood Pressure 113/64 02/03/2025 9:20 AM EDT Pulse 79 02/03/2025 9:20 AM EDT Temperature 35.3 ??C (95.6 ??F) 02/03/2025 9:20 AM ED T Respiratory Rate - - Oxygen Saturation 100% 02/03/2025 9:20 AM EDT Inhaled Oxygen Concentration - - Weight 55.1 kg (121 lb 6 oz) 02/03/2025 9:20 AM EDT Height 165.7 cm (5' 5.25 ) 02/03/2025 9:20 AM ED T Body Mass Index 20.04 02/03/2025 9:20 AM EDT documented in this encounter Progress Notes * Karen Regalado MD - 02/03/2025 9:30 AM EDT SUBJECTIVE: Nikki Enriquez is a 24 y.o. year old female who presents for WAITSTAFF CAPTAIN . Denies recent illness, injury, or hospitalization. Patient here for a new patient appointment. She had an episode of paronychia with an abscess about 2 months ago which is resolved now. PMH No history of HTN, HLD, DM, asthma, seizure disorder or hypothyroidism. She has never had Pap smear. She is sexually active with [facility] partner, they use condoms 100% of the times and she is interested in control. She does not have any concern regarding STIs, no vaginal discharge LMP 12/29/23 C: 28-30 x 7 PSH None Meds None PFH Mother has hypertension, she does not know his father's medical history. Acute Concerns: Social History Social History Narrative Not on file Patient Active Problem List Diagnosis Anemia Contraceptive education Family History Problem Relation Name Age of Onset Other (htn) Mother No Known Problems Father Review of Systems Constitutional: Negative for chills, fatigue and fever. HENT: Negative for congestion, ear pain, nosebleeds, rhinorrhea, sinus pressure, sore throat and trouble swallowing. Eyes: Negative for pain and discharge. Respiratory: Negative for cough, chest tightness and shortness of breath. Cardiovascular: Negative for chest pain, palpitations and leg swelling. Gastrointestinal: Negative for abdominal pain, blood in stool, constipation, diarrhea and nausea. Endocrine: Negative for polydipsia and polyuria. Genitourinary: Negative for dysuria, frequency, genital sores, pelvic pain and vaginal discharge. Musculoskeletal: Negative for back pain and neck pain. Skin: Negative for rash. Allergic/Immunologic: Negative for environmental allergies. Neurological: Negative for dizziness, seizures, weakness, light-headedness and headaches. Hematological: Negative for adenopathy. Psychiatric/Behavioral: Negative for agitation, behavioral problems, self-injury and suicidal ideas. OBJECTIVE: Vitals: 02/03/25 0920 BP: 113/64 Pulse: 79 Temp: 95.6 ??F (35.3 ??C) SpO2: 100% Physical Exam HENT: Right Ear: Tympanic membrane and ear canal normal. Left Ear: Tympanic membrane and ear canal normal. Mouth/Throat: Mouth: Mucous membranes are moist. Pharynx: No oropharyngeal exudate or posterior oropharyngeal erythema. Eyes: Pupils: Pupils are equal, round, and reactive to light. Cardiovascular: Rate and Rhythm: Regular rhythm. Pulses: Normal pulses. Heart sounds: Normal heart sounds. No murmur heard. Pulmonary: Breath sounds: Normal breath sounds. Abdominal: General: Bowel sounds are normal. Palpations: Abdomen is soft. Tenderness: There is no abdominal tenderness. Musculoskeletal: General: Normal range of motion. Cervical back: Neck supple. Skin: General: Skin is warm. Neurological: General: No focal deficit present. Mental Status: She is alert and oriented to person, place, and time. Psychiatric: Mood and Affect: Mood normal. Behavior: Behavior normal. Problem List Items Addressed This Visit Anemia - Primary Order labs and follow-up in 6 to 8 weeks Relevant Orders TSH with Reflex to Free T4 CBC auto differential (Completed) Ferritin HIV-1/2 Antigen and Antibodies, Fourth Generation, with Reflexes Lipid Panel with Reflex to Direct LDL Comprehensive Metabolic Panel Contraceptive education I discussed with patient at length regarding [...] with me in 6 to 8 weeks Relevant Orders Syphilis Screen Hepatitis Panel, General HIV-1/2 Antigen and Antibodies, Fourth Generation, with Reflexes Chlamydia/N. Gonorrhoeae RNA, TMA, Urogenitial Follow Up: No current outpatient medications on file prior to visit. No current facility-administered medications on file prior to visit. documented in this encounter Miscellaneous Notes * Patient Education Note - Karen Regalado MD - 02/03/2025 1:54 PM EDT Images from the original note were not included. Patient Education Table of Contents Etonogestrel Implant To view videos and all your education online visit, [email or web address] or scan this QR code with your smartphone. Access to this content will in one year. Etonogestrel Implant ?Qu?? es joelle medicamento? El ETONOGESTREL jacqui la ovulaci?n y el embarazo. Pertenece a un libby de medicamentos llamados anticonceptivos. Joelle medicamento es юлия hormona del libby de los progest?genos. Joelle medicamento puede ser utilizado para otros usos; si tiene alguna pregunta consulte con alvarado proveedor de atenci?n m?dica o con alvarado farmac?utico. MARCAS COMUNES: Implanon, Nexplanon ?Qu?? le anam informar a mi profesional de la celina antes de jose g joelle medicamento? Necesitan saber si usted presenta alguno de los siguientes problemas o situaciones: Sangrado vaginal anormal Co?gulos sangu?neos Enfermedad vascular C?ncer de mama, c?rvix, endometrio, ovario, h?gado o ?tero Diabetes Enfermedad de la ves?cula biliar Enfermedad cardiaca o ataque cardiaco reciente Presi?n arterial kia Nivel elevado de colesterol o triglic?ridos Enfermedad renal Enfermedad hep?diamante Migra?as Convulsiones Accidente cerebrovascular Uso de tabaco Юлия reacci?n al?rgica o inusual al etonogestrel, a otros medicamentos, alimentos, colorantes o conservantes Si est?? embarazada o buscando quedar embarazada Si est?? amamantando a un beb?? ?C?mo anam utilizar joelle medicamento? Alvarado equipo de atenci?n inserta joelle dispositivo nicko debajo de la piel en la parte interior del brazo. Hable con alvarado equipo de atenci?n sobre el uso de joelle medicamento en ni?os. Puede requerir atenci?n especial. Sobredosis: P?ngase en contacto inmediatamente con un centro toxicol?gico o юлия tayler de urgencia siusted mariam que haya tomado demasiado medicamento.
ATENCI?N: Joelle medicamento es solo para usted. No comparta joelle medicamento con nadie. ?Qu?? sucede si me olvido de юлия dosis? No se aplica en joelle vincent. ?Qu?? puede interactuar con joelle medicamento? No use joelle medicamento con ninguno de los siguientes productos: Amprenavir Fosamprenavir Joelle medicamento tambi?n podr?a interactuar con los siguientes productos: Acitretina Aprepitant Armodafinilo Bexaroteno Bosentano Carbamazepina Ciertos medicamentos antivirales para VIH o hepatitis Ciertos medicamentos para infecciones abilio?javier, tales leah fluconazol, ketoconazol, itraconazol o voriconazol Ciclosporina Felbamato Griseofulvina Lamotrigina Modafinilo Oxcarbazepina Fenobarbital Fenito?na Primidona Rifabutina Rifampicina Rifapentina Hierba de Julio César Topiramato Puede ser que esta lista no menciona todas las posibles interacciones. Informe a alvarado profesional de la celina de todos los productos a base de hierbas, medicamentos de venta devora o suplementos nutritivos que est?? tomando. Si usted fuma, consume bebidas alcoh?licas o si utiliza drogas ilegales, ind?queselo tambi?n a alvarado profesional de la celina. Algunas sustancias pueden interactuar con alvarado medicamento. ?A qu?? anam estar atento al usar joelle medicamento? Visite a alvarado equipo de atenci?n para que revise alvarado evoluci?n robel?dicamente. Usar joelle medicamento no los protege ni a usted ni a alvarado yuval de la infecci?n por VIH ni de ninguna otra infecci?n de transmisi?n sexual. Usted debe poder sentir el implante al presionar la piel donde se insert?? con la yema de los dedos. Contacte a alvarado equipo de atenci?n si no puede sentir el implante, y use un m?todo anticonceptivo nohormonal (leah condones) hasta que alvarado equipo de atenci?n confirme que el implante est?? en alvarado lugar. Contacte a alvarado equipo de atenci?n si mariam que el implante puede haberse roto o doblado dentro del brazo. Alvarado equipo de atenci?n le entregar?? юлия tarjeta de usuario despu?s de insertar el implante. La tarjeta es un registro de la ubicaci?n del implante en alvarado brazo e indica cu?ndo debe retirarse. Conserveesta tarjeta con cristy registros m?dicos. ?Qu?? efectos secundarios puedo tener al utilizar joelle medicamento? Efectos secundarios que debe informar a alvarado equipo de atenci?n sanchez pronto leah sea posible: Reacciones al?rgicas: erupci?n cut?surekha, comez?n/picaz?n, urticaria, hinchaz?n de la jeffrey, los labios, la lengua o la garganta Co?gulo sangu?alberto: dolor, hinchaz?n, calor en юлия pierna, falta de aire, dolor en el pecho Problemas en la ves?cula biliar: dolor de est?esha intenso, n?useas, v?mitos, fiebre Aumento de la presi?n arterial Lesi?n en el h?gado: dolor en la rafat?n abdominal superior derecha, p?rdida de apetito, n?useas, heces de color nick, orina amarilla oscura o marco?n, color amarillento de los ojos o la piel, debilidad o fatiga inusuales Migra?as o bettina de julian nuevos o peores Dolor, enrojecimiento o irritaci?n en el lugar de la inyecci?n Accidente cerebrovascular: entumecimiento o debilidad repentinos de la jeffrey, un brazo o юлия pierna,dificultad para hablar, confusi?n, dificultad para caminar, p?rdida de equilibrio o coordinaci?n, mareos, dolor de julian intenso, cambio en la visi?n Flujo vaginal inusual, comez?n/picaz?n u olor Empeoramiento del estado de ?dora, sentimientos de depresi?n Efectos secundarios que generalmente no requieren atenci?n m?dica (debe informarlos a alvarado equipo de atenci?n si persisten o si son molestos): Dolor o sensibilidad de las mamas [place] oscuras en la piel de la jeffrey o de otras ?reas expuestas al birdie Ciclos menstruales irregulares o sangrado ligero entre periodos menstruales N?useas Aumento de peso Puede ser que esta lista no menciona todos los posibles efectos secundarios. Comun?quese a alvarado m?dico por asesoramiento m?dico sobre los efectos secundarios. Usted puede informar los efectos secundarios a la FDA por tel?fono al [phone]. ?D?nde anam guardar mi medicina? Joelle medicamento se administra en hospitales o cl?nicas y no es necesario guardarlo en alvarado domicilio. ATENCI?N: Joelle folleto es un resumen. Puede ser que no cubra toda la posible informaci?n. Si usted tiene preguntas acerca de esta medicina, consulte con alvarado m?dico, alvarado farmac?utico o alvarado profesional chepe celina. ? 2024 Elsevier/Gold Standard (2023-10-02) * Patient Education Note - Karen Regalado MD - 02/03/2025 1:54 PM EDT Images from the original note were not included. Patient Education Table of Contents Dispositivo intrauterino (DIU): qu?? debe saber (Intrauterine Device (IUD): What to Know) To view videos and all your education online visit, [email or web address] or scan this QR code with your smartphone. Access to this content will in one year. Dispositivo intrauterino (DIU): qu?? debe saber Intrauterine Device (IUD): What to Know El dispositivo intrauterino (DIU) se coloca en el ?tero para evitar el embarazo. Es un dispositivo yung?o en forma de ?T? del que cuelgan bouchra o dos hilos de nailon. Los hilos quedan colgando fuera del stella uterino, que es la parte inferior del ?tero. Hay dos tipos de DIU. El DIU hormonal. Las hormonas son sustancias qu?micas que afectan el funcionamiento del organismo. ? Joelle tipo de DIU est?? hecho de pl?stico y contiene la hormona progestina. ? Puede durar entre 3 y 8 a?os. El DIU de cobre. ? Joelle tipo de DIU est?? envuelto por un alambre de cobre. ? El DIU de cobre puede durar entre 5 y 12?a?os. ?C?mo se coloca el DIU? El m?dico coloca el DIU a jesus?s de la vagina y lo hace pasar por el stella uterino hasta llegar al?tero. ?C?mo se retira el DIU? El m?dico tirar?? de los hilos del DIU para retirarlo del ?tero. ?C?mo funciona el DIU? La progestina del DIU hormonal previene el embarazo porque: Espesa el moco cervical. [place] jacqui que los espermatozoides ingresen en el ?tero. Hace m?s leo el revestimiento del ?tero. [place] jacqui que un ?vulo fecundado se implante all?. El cobre del DIU de cobre hace que el ?tero y las trompas de [place] produzcan un l?quido. Joelle l?quido destruye los espermatozoides. ?Cu?les son las ventajas del DIU? Ventaja de los dos tipos de DIU Un DIU: Funciona muy lisa para evitar el embarazo. Se puede retirar. Usted puede quedar embarazada poco tiempo despu?s de le retiren el DIU. Tiene bajo mantenimiento. Puede dejarse colocado dalton mucho tiempo. No produce los efectos secundarios debidos al estr?eleonora. Se puede utilizar dalton el amamantamiento. No provoca aumento de peso. Puede colocarse inmediatamente despu?s de un parto, un aborto provocado o un aborto espont?alberto. Ventajas del DIU hormonal Si se coloca dentro de los 7?d?as del inicio del per?odo menstrual, puede evitar el embarazo de inmediato. Si el DIU hormonal se coloca en cualquier otro momento del ciclo, ser?? necesario que utilice un m?todo anticonceptivo adicional dalton los 7?d?as posteriores a la inserci?n. Puede hacer que los per?odos april m?s ligeros o que desaparezcan. Puede reducir los c?licos del per?odo. Se puede utilizar entre 3?y 8?a?os. [place] depende del DIU que tenga. Ventajas del DIU de cobre Funciona inmediatamente despu?s de ser colocado. Puede usarse leah m?todo anticonceptivo de emergencia. Debe colocarse dentro de los 5?d?as despu?s de tener sexo sin protecci?n. No contiene hormonas. No afecta las hormonas naturales del cuerpo. Se puede utilizar dalton un m?ximo de 10 a?os. ?Cu?les son las desventajas del DIU? El DIU puede causar manchado o sangrado entre per?odos menstruales. Es com?n tener dolor dalton la colocaci?n del DIU. Tambi?n puede tener c?licos y sangrado vaginal despu?s de la colocaci?n. El DIU de cobre puede hacer que el per?odo menstrual sea m?s abundante y doloroso. El DIU no puede prevenir las ITS. Debe usar preservativo para prevenir las ITS. El DIU puede cortar el ?tero, lo que se conoce leah perforaci?n uterina, al colocarlo. [place] es pocofrecuente. Puede producirse enfermedad inflamatoria p?lvica (EIP) despu?s de la colocaci?n del DIU. ? La EIP es юлия infecci?n del ?tero y las trompas de [place]. ? El DIU no provoca la infecci?n. ? La infecci?n proviene de юлия infecci?n de transmisi?n sexual (ITS). Si ocurre, suele producirse dalton los primeros 20?d?as despu?s de colocar el DIU. [place] es poco frecuente. Esta informaci?n no tiene leah fin reemplazar el consejo del m?dico. Aseg?rese de hacerle al m?dicocualquier pregunta que tenga. Document Released: 2011-05-01 Document Updated: 2024-09-01 Document Reviewed: 2024-09-01 Elsevier Patient Education ? 2024 [employer] * Assessment & Plan Note - Karen Regalado MD - 02/03/2025 12:05 PM EDT Associated Problem(s): Contraceptive education I discussed with patient at length regarding [...] with me in 6 to 8 weeks * Assessment & Plan Note - Karen Regalado MD - 02/03/2025 12:04 PM EDT Associated Problem(s): Anemia Order labs and follow-up in 6 to 8 weeks documented in this encounter Plan of Treatment Upcoming Encounters Date Type Department Care Team (Late st Contact Info) Description 2025 9:00 AM EDT Office Visit [facility] MEDICINE [address] [place] [address] [phone] Karen Regalado MD [address] [place], [place] [phone] Scheduled Orders Name Type Priority Associated Diagnoses Orde r Schedule TSH with Reflex to Free T4 Lab Routine Anemia, unspecified type Expected: 02/03/2025 (Approximate), Expires: 02/03/2026 Syphilis Screen Lab Routine Contraceptive education Expected: 02/03/2025 (Approximate), Expires: 02/03/2026 Hepatitis Panel, General Lab Routine Contraceptive education Expected: 02/03/2025 (Approximate), Expires: 02/03/2026 Ferritin Lab Routine Anemia, unspecified type Expected: 02/03/2025, Expires: 02/03/2026 HIV-1/2 Antigen and Antibodies, Fourth Generation, with Reflexes Lab Routine Anemia, unspecified type Contraceptive education Expected: 02/03/2025 (Approximate), Expires: 02/03/2026 Lipid Panel with Reflex to Direct LDL Lab Routine Anemia, unspecified type Expected: 02/03/2025 (Approximate), Expires: 02/03/2026 Comprehensive Metabolic Panel Lab Routine Anemia, unspecified type Expected: 02/03/2025 (Approximate), Expires: 02/03/2026 Chlamydia/N. Gonorrhoeae RNA, TMA, Urogenitial Microbiology Routine Contraceptive education Ordered: 02/03/2025 documented as of this encounter Procedures Procedure Name Priority Date/Time Associated Diagnosis Comments CBC WITH AUTO DIFFERENTIAL Routine 02/03/2025 10:40 AM EDT Anemia, unspecified type documented in this encounter Results * (ABNORMAL) CBC auto differential (02/03/2025 10:40 AM EDT) White Blood Count 5.1 4.8 - 10.8 X10*3/uL [facility] Red Blood Count 4.77 4.20 - 5.50 X10*6/uL [facility] Hemoglobin 12.6 12.0 - 16.0 g/dl [facility] Hematocrit 39.2 37.0 - 47.0 % [facility] Mean Corpuscular Volume 82.2 80.0 - 98.0 fL [facility] Mean Corpuscular Hemoglobin 26.4(L) 27.0 - 33.0 pg [facility] Mean Corpuscular HGB Conc 32.1 31.0 - 35.0 g/dl [facility] Red Cell Distribution Width 13.4 11.0 - 16.0 % [facility] Platelet Count 186 160 - 400 X10*3/uL [facility] Mean Platelet Volume 12.5(H) 9.4 - 12.3 fL [facility] Neutrophils Percent Auto 63.1 45 - 73 % [facility] Imm Gran Pct Auto 0.2 0.0 - 0.4 % [facility] Lymphocytes Percent Auto 26.7 20 - 40 % [facility] Monocytes Percent Auto 8.6 2 - 11 % [facility] Eosinophils Percent Auto 1.2 0 - 4 % [facility] Basophils Percent Auto 0.2 0 - 2 % [facility] NRBC Pct Auto 0.0 0.0 - 0.2 /100WBC [facility] Neutrophils Absolute Auto 3.3 2.0 - 8.3 x10*3/uL [facility] Imm Gran Abs Auto 0.01 0.00 - 0.03 X10*3/uL [facility] Lymphocytes Absolute Auto 1.4 1.2 - 4.9 X10*3/uL [facility] Monocytes Absolute Auto 0.4 0.1 - 1.2 X10*3/uL [facility] Eosinophils Absolute Auto 0.1 0.0 - 0.4 X10*3/uL [facility] Basophils Absolute Auto 0.0 0.0 - 0.2 X10*3/uL [facility] NRBC Abs Auto 0.000 0.0 - 0.012 X10*3/uL [facility] Blood Venous blood specimen / Unknown 02/03/2025 10:40 AM EDT 02/03/2025 11:45 AM EDT us Karen Regalado MD LAB BLOOD ORDERABLES Fin al Result [facility] [address] [place] [address] [phone] documented in this encounter Visit Diagnoses Diagnosis Anemia, unspecified type- Primary Contraceptive education Unspecified contraceptive management documented in this encounter Care Teams Boomswing Operator Relationship Specialty Start Date End Date Karen Regalado MD [address] [place] [phone] PCP - General Internal Medicine 02/03/25 documented as of this encounter
--- OUTSIDE RECORDS SUMMARY | 2025-02-03 12:11 | XMS_ITS | Encounter Summary ---
Author Organization [facility] Address [address] [facility] [address] [place] [address] Care Team Providers Care Optical Effects Layout Person Name Role Phone Unavailable Primary Care Provider Unavailabl e Reason for Visit * Reason Onset Date Comments Chart prep 02/01/2025 Encounter Details Date Type Department Care Team (Late st Contact Info) Description 02/01/[address] [phone] Jacquelyn Gonzalez MA Chart prep Social History Tobacco Use Types Packs/Day Years Used Date Smoking Tobacco: Never Smokeless Tobacco: Never Comments Unknown Sex and Gender Information Value Date Recorded Sex Assigned at Female 05/22/2024 8:58 AM EDT Legal Sex Female 9:26 AM EDT Gender Identity Female 05/22/2024 8:58 AM EDT Sexual Orientation Something else 02/02/2025 9: 27 PM EDT Sexual Orientation Straight 02/02/2025 9: 27 PM EDT documented as of this encounter Miscellaneous Notes * Telephone Encounter - Jacquelyn Gonzalez MA - 02/01/2025 12:59 PM EDT Chart Prep Labs: done Images: not applicable Vaccines due: yes Referrals: N/A Screenings: pap smear Overdue care gaps: SDOH, PHQ-9 documented in this encounter Plan of Treatment Upcoming Encounters Date Type Department Care Team (Late st Contact Info) Description 2025 9:00 AM EDT Office Visit [address] [phone] Karen Regalado MD [address] [place] [address] documented as of this encounter Visit Diagnoses Not on filedocumented in this encounter
--- OUTSIDE RECORDS SUMMARY | 2025-02-03 12:11 | XMS_ITS | Encounter Summary ---
Author Organization [employer] Address [address] [facility] [address] [place] [address] Care Team Providers Care Raised Printer Name Role Phone Unavailable Primary Care Provider Unavailabl e Reason for Visit * Reason Comments Pre-visit Planning SDOH unable to reach LVM Encounter Details Date Type Department Care Team ([facility] st Contact Info) Description 01/27/2025 Patient Outreach [facility] [address] [place] [address] Karen Regalado MD [address] [place] [address] Pre-visit Planning (SDOH unable to reach LVM ) Social History Tobacco Use Types Packs/Day Years [...] PM EDT documented as of this encounter Progress Notes * Katie Stallworth - 01/27/2025 2:53 PM EST TOÑA Reynoso placed outbound call to patient to complete pre-visit planning. No answer at this time. Patient name and were not confirmed. CC left voicemail requesting return call. Direct contactinformation provided. documented in this encounter Plan of Treatment Upcoming Encounters Date Type Department Care Team (Late st Contact Info) Description 2025 9:00 AM EDT Office Visit [facility] [address] [place] [address] Karen Regalado MD [address] [place] [address] documented as of this encounter Visit Diagnoses Not on filedocumented in this encounter
--- OUTSIDE RECORDS SUMMARY | 2025-02-03 12:11 | XMS_ITS | Encounter Summary ---
Author Organization [facility] [employer] Address [address] [facility] [address] [place] [address] Care Team Providers Care Client Care Coordinator Name Role Phone Karen Regalado MD Primary Care Provider + Encounter Details Date Type Department Care Team (Latest Contact Info) Description 02/03/2025 Travel Social History Tobacco Use Types Packs/Day Years Used Date Smoking Tobacco: Never Smokeless Tobacco: Never Alcohol Use Standard Drinks/Week Comments Yes 0 [...] PM EDT documented as of this encounter Plan of Treatment Upcoming Encounters Date Type Department Care Team (Late st Contact Info) Description 2025 9:00 AM EDT Office Visit [facility] MED[facility]INE [address] [place] [address] Karen Regalado MD [address] [place] [address] documented as of this encounter Visit Diagnoses Not on filedocumented in this encounter Care Teams Client Care Coordinator Relationship Specialty Start Date End Date Karen Regalado MD [address] [place] [address] PCP - General Internal Medicine 02/03/25 documented as of this encounter
[2025-02-03 12:42] LABS: Alanine Aminotransferase 17 U/L (0-31); Albumin Level 4.5 g/dL (3.5-5.0); Alkaline Phosphatase 61 U/L (39-117); Anion Gap 9 (12-20); Aspartate Amino Transferase 23 U/L (5-31); Bilirubin Total 0.6 mg/dL (0.0-1.0); Blood Urea Nitrogen 13 mg/dL (9-16); Calcium 9.3 mg/dL (8.4-10.2); Carbon Dioxide 23 mmol/L (22-29); Chloride 111 mmol/L (96-108); Cholesterol 171 mg/dL (<200); Estimated Glomerular Filt Rate > 60; Ferritin 29 ng/mL (10-122); Glucose Random 87 mg/dL (60-115); HDL Cholesterol 57 mg/dL (>40); LDL Cholesterol Calculated 106 mg/dL (<100); Potassium 4.2 mmol/L (3.3-5.1); Sodium 139 mmol/L (135-145); TSH reflex Free T4 0.54 uIU/mL (0.32-4.0); Total Protein 7.7 g/dL (6.5-8.0); Triglycerides 40 mg/dL (<150)
[2025-02-03 12:54] LABS: HBS Num1 0.88 mIU/mL (0-7.99); HBc Num1 0.21 S/CO (0.00-0.79); HBsAGNum1 0.27 S/CO (0.00-0.99); HIV AB/AG Nonreactive (Nonreactive); HIV Num 1 0.06 S/CO (0.00-0.99); Hepatitis A Antibody IgM 0.23 Index (0-0.79); Hepatitis B Core Antibody Nonreactive (Nonreactive); Hepatitis B Surface Antigen Negative (Negative); ~HepC Num1 0.26 S/CO (0.00-0.79); ~Hepatitis A Antibody IgM Nonreactive (Nonreactive); ~Hepatitis B Surface Antibody NONREACTIVE (Nonreactive); ~Hepatitis C Antibody Nonreactive (Nonreactive)
[2025-02-03 12:59] LABS: Syphilis Screen Nonreactive (Nonreactive)
[2025-02-03 14:06] LABS: Reflex LDLD? No
== END 2025-02-03 10:34 | disposition home or self-care (01) ==
LOC: HO.HHCL 10:33
PROVIDERS: Visit Provider Internal Medicine
DX: Z30.09 Encounter for other general counseling and advice on contraception (principal); D64.9 Anemia, unspecified
CPT/HCPCS: 36415; 80053; 80061; 82728; 84443; 85025; 86704; 86706; 86709; 86780; 86803; 87340; 87389

== ENCOUNTER 2025-08-11 19:21 | Outpatient (REF) | payer MEDICAID, OTHER, SELFPAY ==
--- OUTSIDE RECORDS SUMMARY | 2025-08-11 10:00 | XMS_ITS | Encounter Summary ---
Author Organization [employer] [facility] Address [address] [facility] [address] [place] [address] Care Team Providers Care Television News Producer Name Role Phone Karen Regalado MD Primary Care Provider + Reason for Referral * Consultation (Routine) - Authorized Specialty Diagnoses / Procedures Referred By Dayday jackson Referred To Contact Midwifery Diagnoses Encounter for surveillance of transdermal patch hormonal contraceptive device Karen Regalado MD [address] [place], [place] Phone: tel: fax: Caprice Zamora CNM [address] [place] [address] Phone: tel: fax: Referral ID Status Reason Start Date Expiration Date Visits Requested Visits Authorized [id number] Authorized Consult and Treat 08/11/2025 08/11/2026 1 1 * Consultation (Routine) - Closed Specialty Diagnoses / Procedures Referred By Contac t Referred To Contact Optometry Diagnoses Decreased vision in both eyes Karen Regalado MD [address] [place] [address] Phone: tel: fax: [facility] [address] [place] [address] Phone: tel: fax: Referral ID Status Reason Start Date Expiration Date V isits Requested Visits Authorized [id number] Closed Consult and Treat 08/11/2025 08/11/2026 1 1 Reason for Visit * Reason Comments Gynecologic Exam Encounter Details Date Type Department Care Team (Latest Contact Info) Description 08/11/2025 10:00 AM EDT Procedure Visit [facility] MEDICINE [address] [place] [address] Karen Regalado MD [address] [place], [place] [phone] Encounter for cervical Pap smear with pelvic exam (Primary Dx); Encounter for surveillance of transdermal patch hormonal contraceptive device; Decreased vision in both eyes; Encounter for immunization Social History Tobacco Use Types Packs/Day Years Used Date Smoking Tobacco: Never Smokeless Tobacco: Never Alcohol Use Standard Drinks/Week Comments Yes 0 (1 standard drink = 0.6 oz pur e alcohol) social, few times per year Alcohol Answer Date Recorded How often do you have a drink containing alcohol ? 2 2025 How many drinks containing a lcohol do you have on a typical day when you are drinking? 0 2025 How often do you have six or more drinks on one occasion? 0 2025 Depression Answer Date Recorded Patient Health Questionnaire-9 Score 11 08/11/2025 Patient Health Questionnaire-9 Score 11 08/11/2025 Last PHQ-9: Questionnaire Data Not on file 0 08/11/2025 Housing Stability Answer Date Recorded What is [...] Answer Date Recorded Patient Health Questionnaire-2 Score 3 08/11/2025 Internet Access Answer Date Recorded Internet Access [...] Sign Reading Time Taken Comments Blood Pressure 102/52 08/11/2025 9:57 AM EDT Pulse 76 08/11/2025 9:57 AM EDT Temperature 36.7 C (98 F) 08/11/2025 9:57 AM EDT Respiratory Rate 16 08/11/2025 9:57 AM EDT Oxygen Saturation - - Inhaled Oxygen Concentration - - Weight 56.7 kg (125 lb) 08/11/2025 9:57 AM EDT Height 164.5 cm (5' 4.75 ) 08/11/2025 9:57 AM ED T Body Mass Index 20.96 08/11/2025 9:57 AM EDT documented in this encounter Functional Status * Over the past 2 weeks, how often have you been bothered by any of the following problems? Question Answer Date of Assessment Author Patient Health Questionnaire -2 Score 3 08/11/2025 11:12 AM EDT Erum Arellano MA * Little interest or pleasure in doing things Answer Date of Assessment Author Several days 08/11/2025 11:12 AM EDT Erum Arellano MA * Feeling down, depressed, or hopeless Answer Date of Assessment Author More than half the days 08/11/2025 11:12 AM EDT Erum Arellano [place] * Trouble falling or staying asleep, or sleeping too much Answer Date of Assessment Author More than half the days 08/11/2025 11:12 AM EDT Erum Arelalno MA * Feeling tired or having little energy Answer Date of Assessment Author Several days 08/11/2025 11:12 AM Erum Villareal [place] * Poor appetite or overeating Answer Date of Assessment Author Several days 08/11/2025 11:12 AM Erum Villareal [place] * Feeling bad about yourself - or that you are a failure or have let yourself or your family down Answer Date of Assessment Author Several days 08/11/2025 11:12 AM Erum Villareal MA * Trouble concentrating on things, such as reading the newspaper or watching television Answer Date of Assessment Author Several days 08/11/2025 11:12 AM Erum Villareal [place] * Moving or speaking so slowly that other people could have noticed? Or the opposite - being so fidgety or restless that you have been moving around a lot more than usual. Answer Date of Assessment Author More than half the days 08/11/2025 11:12 AM Erum Villareal MA * Thoughts that you would be better off or hurting yourself in some way Answer Date of Assessment Author Not at all 08/11/2025 11:12 AM Erum Villareal [place] * Patient Health Questionnaire-9 Score Answer Date of Assessment Author 11 08/11/2025 11:12 AM Erum Villareal MA * Over the last 2 weeks, how often have you been bothered by any of the following problems? Question Answer Date of Assessment Author Feeling nervous, anxious, or on edge 1 08/11/2025 11:12 AM Erum Villraeal MA Not being able to stop or co ntrol worrying 1 08/11/2025 11:12 AM Erum Villareal MA Worrying too much about diff erent things 2 08/11/2025 11:12 AM Erum Villareal MA Trouble relaxing 1 08/11/2025 11:12 AM Erum Villareal [place] Being so restless that it is hard to sit still 1 08/11/2025 11:12 AM Erum Villareal MA Becoming easily annoyed or irritable 2 08/11/2025 11:12 AM Erum Villareal MA Feeling afraid as if somethi ng awful might happen 1 08/11/2025 11:12 AM EDT Erum Arellano MA SHAUNA-7 Total Score 9 08/11/2025 11:12 AM EDT Erum Arellnao [place] documented as of this encounter Progress Notes * Karen Regalado MD - 08/11/2025 10:00 AM EDT SUBJECTIVE: Nikki Enriquez is a 25 y.o. year old female who presents for PAP. Denies recent illness, injury, or hospitalization. Last PAP: Never Hx abn PAP: N/A. She does not think she has ever had HPV vaccine LMP: 07/21/25 C:28-30 x 6-7 Contraception: Patch + Condoms occasionally She is in a relationship: Yes AMAB partner, use condom Concern re STD?None Concerned re DV? None, feels safe Acute Concerns: Social History Social History Narrative Not on file Problem List[1] Family History[2] Review of Systems Constitutional: Negative for chills, [...] problems, self-injury and suicidal ideas. OBJECTIVE: Vitals: 08/11/25 0957 BP: 102/52 Pulse: 76 Resp: 16 Temp: 98 ??F (36.7 ??C) Physical Exam Pan Washer Hand present: Yariel Horta MA. Constitutional: Appearance: Normal appearance. HENT: Right Ear: Tympanic membrane and ear canal normal. Left Ear: Tympanic membrane and ear canal normal. Mouth/Throat: Mouth: Mucous membranes are moist. Pharynx: No oropharyngeal exudate or posterior oropharyngeal erythema. Eyes: Pupils: Pupils are equal, round, and reactive to light. Cardiovascular: Rate and Rhythm: Normal rate and regular rhythm. Heart sounds: No murmur heard. Pulmonary: Breath sounds: Normal breath sounds. No wheezing. Abdominal: General: Bowel sounds are normal. Palpations: Abdomen is soft. Tenderness: There is no abdominal tenderness. Genitourinary: Vagina: Vaginal discharge (Scant, clear, liquid, no full smell) present. No erythema or tenderness. Cervix: No cervical motion tenderness, discharge or lesion. Uterus: Normal. Adnexa: Right adnexa normal and left adnexa normal. Comments: Posterior cervix, difficult to evaluate. Unable to take endocervical sample Musculoskeletal: General: No tenderness. Normal range of motion. Cervical back: Normal range of motion. No tenderness. Skin: General: Skin is warm. Neurological: General: No focal deficit present. Mental Status: She is alert and oriented to person, place, and time. Psychiatric: Mood and Affect: Mood normal. Problem List Items Addressed This Visit Encounter for cervical Pap smear with pelvic exam - Primary Pelvic exam today wnl FU pap smear results/HPV/STI testing and will call back PRN positive results or FU in 3 months. Pt feels safe at home no concern for DV/STDs Counseled regarding STI prevention If today's pap smear/co testing is normal next one will be due in 3 years. She agreed to receive Hep B#1, Tdap and HPV vax today. Relevant Orders Pap Smear Chlamydia/N. Gonorrhoeae RNA, TMA, Urogenitial Bacterial Vaginosis Encounter for surveillance of transdermal patch hormonal contraceptive device Patient is doing well on hormonal patch, she wants to switch to IUD. Will refer to communications department chairperson for IUD placement Relevant Orders Referral to Gynecology (Caprice) Other Visit Diagnoses Decreased vision in both eyes Relevant Orders Referral to Optometry Encounter for immunization Relevant Orders TDAP VACCINE 7 yrs + (Completed) HEPATITIS B VACCINE ADULT 20 yrs + (Completed) Follow Up: Medications Ordered Prior to Encounter[3] [1] Patient Active Problem List Diagnosis Anemia Contraceptive education Encounter for cervical Pap smear with pelvic exam Encounter for surveillance of transdermal patch hormonal contraceptive device [2] Family History Problem Relation Name Age of Onset Other (htn) Mother No Known Problems Father [3] Current Outpatient Medications on File Prior to Visit Medication Sig Dispense Refill norelgestromin-ethinyl estradiol (Xulane) 150-35 MCG/24HR Apply 1 patch each week for 3 weeks, thenremove for 1 week. 3 patch 12 No current facility-administered medications on file prior to visit. documented in this encounter Miscellaneous Notes * Assessment & Plan Note - Karen Regalado MD - 08/11/2025 3:26 PM EDT Associated Problem(s): Encounter for surveillance of transdermal patch hormonal contraceptive device Patient is doing well on hormonal patch, she wants to switch to IUD. Will refer to communications department chairperson for IUD placement * Assessment & Plan Note - Karen Regalado MD - 08/11/2025 10:26 AM EDT Associated Problem(s): Encounter for cervical Pap smear with pelvic exam Pelvic exam today wnl FU pap smear results/HPV/STI testing and will call back PRN positive results or FU in 3 months. Pt feels safe at home no concern for DV/STDs Counseled regarding STI prevention If today's pap smear/co testing is normal next one will be due in 3 years. She agreed to receive Hep B#1, Tdap and HPV vax today. documented in this encounter Plan of Treatment Upcoming Encounters Date Type Department Care Team (Late st Contact Info) Description 08/16/2025 11:30 AM EDT Immunization [facility] MEDICINE [address] [place], [place] [phone] Scheduled Orders Name Type Priority Associated Diagnoses Order Schedule Pap Smear Pathology and Cytology Routine Encounter for cervical Pap smear with pelvic exam Ordered: 08/11/2025 Chlamydia/N. Gonorrhoeae RNA, TMA, Urogenitial Microbiology Routine Encounter for cervical Pap smear with pelvic exam Ordered: 08/11/2025 Bacterial Vaginosis Microbiology Routine Encounter for cervical Pap smear with pelvic exam Expected: 08/11/2025 (Approximate), Expires: 08/11/2026 Scheduled Referrals Name Type Priority Associated Diagnoses Orde r Schedule Referral to Optometry Outpatient Referral Routine Decreased vision in both eyes Expected: 08/11/2025 (Approximate), Expires: 08/11/2026 Referral to Gynecology (Caprice) Outpatient Referral Routine Encounter for surveillance of transdermal patch hormonal contraceptive device Expected: 08/11/2025 (Approximate), Expires: 08/11/2026 documented as of this encounter Visit Diagnoses Diagnosis Encounter for cervical Pap smear with pelvic exam- Primary Encounter for surveillance of transdermal patch hormonal contraceptive device Decreased vision in both eyes Moderate or severe vision impairment, both eyes, impairment level not further specified Encounter for immunization documented in this encounter Additional Health Concerns Assessment Noted Time PHQ-9 Depression Total Score: 11 025 11:12 AM EDT documented as of this encounter Care Teams Television News Producer Relationship Specialty Start Date End Date Karen Regalado MD [address] [place] [id number] PCP - General Internal Medicine 02/03/25 documented as of this encounter
--- OUTSIDE RECORDS SUMMARY | 2025-08-11 19:33 | XMS_ITS | Encounter Summary ---
Author Organization [employer] Address [address] [facility] 7[address] [place] [address] Care Team Providers Care Ichthyology Teacher Name Role Phone Karen Regalado MD Primary Care Provider + Reason for Visit * Reason Onset Date Comments chart prep 08/10/2025 Encounter Details Date Type Department Care Team ([facility] st Contact Info) Description 08/10/2025 Telephone [facility] MEDICINE [address] [place] [address] Karen Regalado MD [address] [place] [address] chart prep Social History Tobacco Use Types Packs/Day [...] encounter Miscellaneous Notes * Telephone Encounter - Yariel Horta MA - 08/10/2025 2:37 PM EDT Chart Prep Labs: not applicable Images: not applicable Referrals: complete Vaccines due: Covid, Flu, Hep B, HPV, and DTAP Screenings: pap smear Overdue care gaps: PHQ-9 and SHAUNA-7 documented in this encounter Plan of Treatment Upcoming Encounters Date Type Department Care Team (Late st Contact Info) Description 08/16/2025 11:30 AM EDT Immunization [facility] MEDICINE [address] [place] [address] documented as of this encounter Visit Diagnoses Not on filedocumented in this encounter Care Teams Ichthyology Teacher Relationship Specialty Start Date End Date Karen Regalado MD [address] [place] [address] PCP - General Internal Medicine 02/03/25 documented as of this encounter
--- OUTSIDE RECORDS SUMMARY | 2025-08-11 19:33 | XMS_ITS | Encounter Summary ---
Author Organization [facility] Address [address] [facility] 7[address] [place] [address] Care Team Providers Care Timber Bucker Name Role Phone Karen Regalado MD Primary Care Provider + Encounter Details Date Type Department Care Team (Latest Contact Info) Description 08/11/2025 Travel Social History Tobacco Use Types Packs/Day [...] PM EDT documented as of this encounter Functional Status * Over the [...] AM EDT Erum Arellano MA * Feeling tired or having little energy Answer Date of Assessment Author Several days 08/11/2025 11:12 AM EDT Erum Arellano MA * Poor appetite or overeating Answer Date of Assessment Author Several days 08/11/2025 11:12 AM EDT Erum Arellano MA * Feeling bad about yourself - or that you are a failure or have let yourself or your family down Answer Date of Assessment Author Several days 08/11/2025 11:12 AM EDT Erum Arellano MA * Trouble concentrating on things, such as reading the newspaper or watching television Answer Date of Assessment Author Several days 08/11/2025 11:12 AM EDT Erum Arellano MA * Moving or speaking so slowly that other people could have noticed? Or the opposite - being so fidgety or restless that you have been moving around a lot more than usual. Answer Date of Assessment Author More than half the days 08/11/2025 11:12 AM EDT Erum Arellano MA * Thoughts that you would be better off or hurting yourself in some way Answer Date of Assessment Author Not at all 08/11/2025 11:12 AM EDT Erum Arellano MA * Patient Health Questionnaire-9 Score Answer Date of Assessment Author 11 08/11/2025 11:12 AM [place] Erum Arellano MA * Over the last 2 weeks, how often have you been bothered by any of the following problems? Question Answer Date of Assessment Author Feeling nervous, anxious, or on edge 1 08/11/2025 11:12 AM EDT Erum Arellano MA Not being able to stop or co ntrol worrying 1 08/11/2025 11:12 AM EDT Erum Arellano MA Worrying too much about diff erent things 2 08/11/2025 11:12 AM EDT Erum Arellano MA Trouble relaxing 1 08/11/2025 11:12 AM EDT Erum Arellano MA Being so restless that it is hard to sit still 1 08/11/2025 11:12 AM EDT Erum Arellano MA Becoming easily annoyed or irritable 2 08/11/2025 11:12 AM EDT Erum Arellano MA Feeling afraid as if somethi ng awful might happen 1 08/11/2025 11:12 AM EDT Erum Arellano MA SHAUNA-7 Total Score 9 08/11/2025 11:12 AM EDT Erum Arellano MA documented as of this encounter Plan of Treatment Upcoming Encounters Date Type Department Care Team (Late st Contact Info) Description 08/16/2025 11:30 AM EDT Immunization [facility] MEDICINE [address] [place] [address] documented as of this encounter Visit Diagnoses Not on filedocumented in this encounter Additional Health Concerns Assessment Noted Time PHQ-9 Depression Total Score: 11 08/11/ 025 11:12 AM EDT documented as of this encounter Care Teams Timber Bucker Relationship Specialty Start Date End Date Karen Regalado MD [address] [place] [id number] PCP - General Internal Medicine 02/03/25 documented as of this encounter
--- OUTSIDE RECORDS SUMMARY | 2025-08-11 19:33 | XMS_ITS | Clinical Summary ---
Author Organization [employer] Address [address] [place] [address] Care Team Providers Care Practice Architect Name Role Phone Karen Regalado MD Primary Care Provider + Allergies No known active allergies Medications norelgestromin-e thinyl estradiol (Xulane) 150-35 MCG/24HR Apply 1 patch each week for 3 weeks, then remove for 1 week. 3 patch 12 02/03/2025 Active Active Problems Problem Noted Date Diagnosed Date Encounter for cervical Pap smear with pelvic exa m 08/11/2025 Assessment & Plan (08/11/2025 3:38 PM EDT): Pelvic exam today wnl FU pap smear results/HPV/STI testing and will call back PRN positive results or FU in 3 months. Pt feels safe at home no concern for DV/STDs Counseled regarding STI prevention If today's pap smear/co testing is normal next one will be due in 3 years. She agreed to receive Hep B#1, Tdap and HPV vax today. Encounter for surveillance o f transdermal patch hormonal contraceptive device 08/11/2025 Assessment & Plan (08/11/2025 3:26 PM EDT): Patient is doing well on hormonal patch, she wants to switch to IUD. Will refer to patient service representative for IUD placement Contraceptive education 02/03/2025 Assessment & Plan (2025 9:47 AM EDT): I have provided education information regarding contraceptive methods and patient currently doing well on hormonal patch, however she would like a more long-term contraception and has opted to be scheduled for an IUD, I will refer her to our patient service representative. She will continue using hormonal patch for now, reminded to use it x 3 weeks, then a break and then started using it dry after that break week. We discussed about HPV vaccination, she will bring immunization records at our next visit for Pap and will proceed with immunizations as required Schedule Pap smear with me Assessment & Plan (02/03/2025 12:05 PM EDT): [...] 8 weeks Anemia 12/16/2024 Assessment & Plan (2025 9:46 AM EDT): Resolved, no need for iron supplementation at this time Will check CBC in 1 year Assessment & Plan (02/03/2025 12:04 PM EDT): Order labs and follow-up in 6 to 8 weeks Encounters Date Type Department Care Team Description 08/11/2025 10:00 AM EDT Procedure Visit [facility] MED[facility]INE [address] [place] [phone] Karen Regalado MD Encounter for cervical Pap smear with pelvic exam (Primary Dx); Encounter for surveillance of transdermal patch hormonal contraceptive device; Decreased vision in both eyes; Encounter for immunization 08/11/2025 Travel 08/10/[address] [phone] Karen Regalado MD chart prep 07/20/[address] [phone] Karen Regalado MD Appointment Request from Last 3 Months Immunizations Immunization Administration Dates Next Due Hep B, adult 08/11/2025 Tdap 08/11/2025 Family History Medical History Relation Name Comments [...] want or need it 01/23 Comments No Intention Date Recorded No desire to become (finding) 0 2025 Sex and Gender Information Value Date Recorded [...] 16 08/11/2025 9:57 AM EDT Oxygen Saturation 100% 02/03/2025 9:20 AM EDT Inhaled Oxygen Concentration - - Weight 56.7 kg (125 lb) 08/11/2025 9:57 AM EDT Height 164.5 cm (5' 4.75 ) 08/11/2025 9:57 AM ED T Body Mass Index 20.96 08/11/2025 9:57 AM EDT Plan of Treatment Upcoming Encounters Date Type Department Care Team (Late st Contact Info) Description 08/16/2025 11:30 AM EDT Immunization [facility] [address] [place], [place] [phone] Health Maintenance Due Date Last Done Comments HPV Vaccines (1 - 3-dose series) 2015 Pap Smear 2021 COVID-19 Vaccine (1 - 2023-2 5 season) 2025 Influenza Vaccine (#1) 2025 Hepatitis B Vaccines (2 of 3 - 19+ 3-dose series) 09/08/2025 08/11/2025 SDOH Screening 02/03/2026 02/03/2025 Depression Monitoring 02/08/2026 08/11/2025 , 08/11/2025 Alcohol/Substance Use Screening 2026 2025 Disability Screening 2026 2025 Family Planning (PISQ) 2026 2025 Tobacco Screening 08/11/2026 08/11/2025 DTaP/Tdap/Td Vaccines (2 - T d or Tdap) 08/11/2035 08/11/2025 Zoster Vaccines (1 of 2) 2050 RSV Patients and Patients Aged 60 years or older (1 - 1-dose 75+ series) 2075 HIV Screening Completed 02/03/2025 Hepatitis C Screening Completed 02/03/2025 HIB Vaccines Aged Out No longer eligi ble based on patient's age to complete this topic Hepatitis A Vaccines Aged Out No long er eligible based on patient's age to complete this topic IPV Vaccines Aged Out No longer eligi ble based on patient's age to complete this topic Meningococcal B Vaccine Aged Out No l onger eligible based on patient's age to complete this topic Meningococcal Vaccine Aged Out No lillie shaquille eligible based on patient's age to complete this topic Pneumococcal Vaccine: Pediatrics (0 to 5 Years) and At-Risk Patients (6 to 49) Years Aged Out No longer eligible b ased on patient's age to complete this topic RSV under 20 months Aged Out No longe r eligible based on patient's age to complete this topic Rotavirus Vaccines Aged Out No longer eligible based on patient's age to complete this topic Procedures Procedure Name Priority Date/Time Associated Diagnosis Comments HEPATITIS PANEL, GENERAL Routine 02/03/2025 10:40 AM EDT Contraceptive education HIV 1/2 ANTIGEN/ANTIBODY, FOURTH GENERATION W/RFL Routine 02/03/2025 10:40 AM EDT Anemia, unspecified type Contraceptive education from Last 3 Months or Most Recently Relevant to Health Maintenance Results * Hepatitis Panel, General (02/03/2025 10:40 AM EDT) Hepatitis A IgM Nonreactive Nonreactive [facility] Comment:IgM antibodies to CHACON V not detected; does not exclude earlyacute or recovered HAV infection. ~Hepatitis B Surface Antibody NONREACTIVE Nonreactive [facility] Comment:Nonreactive: < 8.00 mIU/mL Hepatitis B Core Antibody Nonreactive Nonreactive [facility] Hepatitis C Antibody Nonreactive Nonreactive [facility] Comment:Antibodies to HCV no t detected; does not exclude early acuteHCV infection. Hepatitis B Surface Ag Negative Negative [facility] Blood 02/03/2025 10:4 0 AM EDT 02/03/2025 11:45 AM EDT us Karen Regalado MD LAB BLOOD ORDERABLES Fin al Result Performing Organization Address [facility] Co de Phone Number [facility] [address] [place] [address] [phone] * HIV-1/2 Antigen and Antibodies, Fourth Generation, with Reflexes (02/03/2025 10:40 AM EDT) HIV AB/AG Nonreactive Nonreactive [facility] Comment:HIV-1 p24 Ag and/or HIV-1/HIV-2 Ab not detected.A test result that is nonreactive does not exclude thepossibility of exposure to or infection with HIV-1 and/orHIV-2. Nonreactive results in this assay for individualswith prior exposure to HIV-1 and/or HIV-2 may be due toantigen and antibody levels that are below the limit ofdetection of this assay.The Mom[facility] HIV Ag/Ab Combo assay result andsupplemental assay results should be interpreted inconjunction with the patient's clinical presentation,history and other laboratory results. If the results areinconsistent with clinical evidence, additional testing issuggested to confirm the result. Blood Venous blood specimen / Unknown 02/03/2025 10:40 AM EDT 02/03/2025 11:45 AM EDT us Karen Regalado MD LAB BLOOD ORDERABLES Fin al Result Performing Organization Address [facility] Co de Phone Number [facility] [address] [place] [address] [phone] from Last 3 Months or Most Recently Relevant to Health Maintenance Insurance [employer] [facility] [employer] Care Teams Practice Architect Relationship Specialty Start Date End Date Karen Regalado MD [address] [place] [address] PCP - General Internal Medicine 02/03/25
[2025-08-12 08:49] LABS: Bacterial Vaginosis PCR NEGATIVE (Negative); Candida Group PCR NOT DETECTED (Not Detect); Candida glab krusei PCR NOT DETECTED (Not Detect); Trichomonas vaginalis PCR NOT DETECTED (Not Detect)
[2025-08-12 09:22] LABS: CT PCR NOT DETECTED (Not Detect.); NG PCR NOT DETECTED (Not Detect.)
== END 2025-08-11 19:22 | disposition home or self-care (01) ==
LOC: HO.HHCLNP 19:21
PROVIDERS: Visit Provider Internal Medicine
DX: Z01.419 Encounter for gynecological examination (general) (routine) without abnormal findings (principal); Z11.3 Encounter for screening for infections with a predominantly sexual mode of transmission; Z11.8 Encounter for screening for other infectious and parasitic diseases; Z11.2 Encounter for screening for other bacterial diseases
CPT/HCPCS: 81515; 87491; 87591; 88175

== ENCOUNTER 2025-11-15 08:59 | Outpatient (REF) | payer MEDICAID, OTHER, SELFPAY ==
--- OUTSIDE RECORDS SUMMARY | 2025-11-13 10:00 | XMS_ITS | Encounter Summary ---
Author Organization [facility] Address [address] [place] [address] Care Team Providers Care Manager Market Research Name Role Phone Karen Regalado MD Primary Care Provider + Reason for Referral * Imaging (Routine) - Authorized Specialty Diagnoses / Procedures Referred By Contac t Referred To Contact Cardiology Diagnoses Chilblains, initial encounter Procedures Vascular US lower extremity arterial duplex bilateral with LETY Dano Rutledge MD [address] [place] [address] Phone: tel: fax: [address] [phone] Phone: tel: fax: Referral ID Status Reason Start Date Expiration Date Visits Requested Visits Authorized [id number] Authorized Perform Procedure 5 11/13/2026 1 1 Encounter Details Date Type Department Care Team (Late st Contact Info) Description 11/13/2025 10:00 AM EST Office Visit [facility] [address] [place], [place] [phone] Dano Rutledge MD [address] [place], [place] [phone] Chilblains, initial encounter (Primary Dx); Cellulitis of toe of left foot Social History Tobacco Use Types Packs/Day Years [...] Sign Reading Time Taken Comments Blood Pressure 121/76 11/13/2025 10:03 AM EST Pulse 86 11/13/2025 10:03 AM EST Temperature 37.2 C (98.9 F) 11/13/2025 10:03 AM EST Respiratory Rate 20 11/13/2025 10:03 AM EST Oxygen Saturation 98% 11/13/2025 10:03 AM EST Inhaled Oxygen Concentration - - Weight 54.6 kg (120 lb 6.4 oz) 11/13/2025 10:03 AM EST Height - - Body Mass Index 20.19 08/11/2025 9:57 AM EDT documented in this encounter Progress Notes * Dano Mclean MD - 11/13/2025 10:00 AM EST Images from the original note were not included. SUBJECTIVE Nikki Enriquez is a 25 y.o. female who presents for No chief complaint on file.. Nikki Enriquez, 25 years Redness and Swelling of Toes - First episode occurred last year ( November), affecting one toe, with redness and swelling - No trauma to the affected toe - Went to the emergency department last year; per her report radiographs showed no abnormalities - Toe was incised by physician in the ER last year, reported sersanguinolent fluid - Treated last year with oral doxy and ce[phalosporin and subsequently with Clindamycin due to the lack of improvement, reports associated itching sensation - Current episode began this year on the day it snowed, affecting the same toe and now also the third toe - Redness, swelling, and itching sensation reported - No pain at onset, denies pain with touch or movement - Symptoms have persisted for 2 weeks, no improvement or worsening - Noted that feet are always cold - History of walking barefoot outside in cold weather prior to onset HPI Review of Systems Allergies[1] OBJECTIVE Vitals: 11/13/25 1003 BP: 121/76 BP Location: Left arm Patient Position: Sitting BP Cuff Size: Adult Pulse: 86 Resp: 20 Temp: 98.9 ??F (37.2 ??C) TempSrc: Oral SpO2: 98% Weight: 120 lb 6.4 oz (54.6 kg) Physical Exam Vitals reviewed. Constitutional: Appearance: Normal appearance. HENT: Head: Normocephalic and atraumatic. Right Ear: External ear normal. Left Ear: External ear normal. Nose: Nose normal. Mouth/Throat: Mouth: Mucous membranes are moist. Eyes: Conjunctiva/sclera: Conjunctivae normal. Cardiovascular: Rate and Rhythm: Normal rate and regular rhythm. Pulmonary: Effort: Pulmonary effort is normal. Breath sounds: Normal breath sounds. Musculoskeletal: Feet: Skin: General: Skin is warm. Neurological: Mental Status: She is alert. Mental status is at baseline. Assessment/Plan No specific assessment and plan information mentioned in this consultation. Problem List Items Addressed This Visit Erythema pernio - Primary 25 yr old female with recurrent episodes of redness and swelling of left 3rd and fourth toes, described as intermittent, happened earlier this year during the winter (November 2024). Triggered by coldweather, denies pain, described more as itching . On exam both feet are cold to the touch , pedal pulses are symmetrically mildly decreased. There is localized erythema and swelling of 3rd and fourthtoes, NO warmth, No tenderness, no fluctuance. Denies any fever, No joint pain, No rashes. Symptoms of recurrent cold induced toe erythema and swelling seems consistent with pernio(chilblains). Atypical for cellulitis (non painful, recurrent) dDx: Perniosis, Raynauds phenomenon, Autoimmune, Small vessel vasculitis, Cellulitis (doubt0 Plan: CBC, CMP, ESR, CRP, KAREN LE arterial duplex and ABIs Recommended: Strict cold avoidance ( patient was wearing flip flops) Insulated footwear and wool socks Keep feet dry Gradual warming (avoid hot water) -reviewed signs of infection ischemia and instructed her to present herself to nearest ER if any ofthose symptoms present -Follow up with PCP 1 week -Asked her to come in if it becomes painful, if any nulcer or drainage develop. -I Rx a short course of Clindamycin 300 mg po q 6 hrs in the rare event thate there is an infectious component 9 Same antibiotic she reported benefit backin November) Relevant Orders CBC auto differential Sed Rate by Modified [place] Comprehensive Metabolic Panel KAREN Screen,IFA, with Reflex to Titer and Pattern Antiphospholipid Antibody Panel Vascular US lower extremity arterial duplex bilateral with LETY Other Visit Diagnoses Cellulitis of toe of left foot Relevant Medications clindamycin (Cleocin) 300 MG capsule This note was drafted using Ambient (AI) technology. The patient/patient's guardian has been informed and has consented to the use of this technology: Yes Future Appointments Date Time Provider Department Center 12/01/2025 11:00 AM Karen Regalado MD MEDICINE [facility] 01/20/2026 9:30 AM Miranda Alba, OD [facility] 03/01/2026 11:00 AM [facility] PHARMACIST MEDICINE [facility] [1] No Known Allergies documented in this encounter Miscellaneous Notes * Assessment & Plan Note - Dano Mclean MD - 11/13/2025 10:57 AM EST Associated Problem(s): Erythema pernio Images from the original note were not included. 25 yr old female with recurrent episodes of redness and swelling of left 3rd and fourth toes, described as intermittent, happened earlier this year during the winter (November 2024). Triggered by coldweather, denies pain, described more as itching . On exam both feet are cold to the touch , pedal pulses are symmetrically mildly decreased. There is localized erythema and swelling of 3rd and fourthtoes, NO warmth, No tenderness, no fluctuance. Denies any fever, No joint pain, No rashes. Symptoms of recurrent cold induced toe erythema and swelling seems consistent with pernio(chilblains). Atypical for cellulitis (non painful, recurrent) dDx: Perniosis, Raynauds phenomenon, Autoimmune, Small vessel vasculitis, Cellulitis (doubt0 Plan: CBC, CMP, ESR, CRP, KAREN LE arterial duplex and ABIs Recommended: Strict cold avoidance ( patient was wearing flip flops) Insulated footwear and wool socks Keep feet dry Gradual warming (avoid hot water) -reviewed signs of infection ischemia and instructed her to present herself to nearest ER if any ofthose symptoms present -Follow up with PCP 1 week -Asked her to come in if it becomes painful, if any nulcer or drainage develop. -I Rx a short course of Clindamycin 300 mg po q 6 hrs in the rare event thate there is an infectious component 9 Same antibiotic she reported benefit backin November) documented in this encounter Plan of Treatment Upcoming Encounters Date Type Department Care Team (Late st Contact Info) Description 12/01/2025 11:00 AM EST Office Visit [facility] MEDICINE [address] [place] [address] Karen Regalado MD [address] [place] [address] 01/20/2026 9:30 AM EST Office Visit [facility] OPTOMETRY [address] [place] [address] Miranda Alba, OD [address] [place] [address] 03/01/2026 11:00 AM EDT Immunization [facility] [address] [place] [address] Scheduled Orders Name Type Priority Associated Diagnoses Orde r Schedule CBC auto differential Lab Routine Chilblains, initial encounter Expected: 11/13/2025 (Approximate), Expires: 11/13/2026 Sed Rate by Modified [place] Lab Routine Chilblains, initial encounter Expected: 11/13/2025, Expires: 11/13/2026 Comprehensive Metabolic Panel Lab Routine Chilblains, initial encounter Expected: 11/13/2025 (Approximate), Expires: 11/13/2026 KAREN Screen,IFA, with Reflex to Titer and Pattern Lab Routine Chilblains, initial encounter Expected: 11/13/2025 (Approximate), Expires: 11/13/2026 Antiphospholipid Antibody Panel Lab Routine Chilblains, initial encounter Expected: 11/13/2025 (Approximate), Expires: 11/13/2026 documented as of this encounter Visit Diagnoses Diagnosis Chilblains, initial encounter- Primary Cellulitis of toe of left foot documented in this encounter Additional Health Concerns Assessment Noted Time PHQ-9 Depression Total Score: 11 025 11:12 AM EDT documented as of this encounter Care Teams Manager Market Research Relationship Specialty Start Date End Date Karen Regalado MD [address] [place] [phone] PCP - General Internal Medicine 02/03/25 documented as of this encounter
--- OUTSIDE RECORDS SUMMARY | 2025-11-15 09:47 | XMS_ITS | Encounter Summary ---
Author Organization [employer] Address [address] [facility] [address] [place] [address] Care Team Providers Care Stationary Fireman Name Role Phone Karen Regalado MD Primary Care Provider + Encounter Details Date Type Department Care Team (Latest Contact Info) Description 11/13/2025 Travel Social History Tobacco Use Types Packs/Day [...] Description 12/01/2025 11:00 AM EST Office Visit [facility] [address] [place] [phone] Karen Regalado MD [address] [place] [address] 01/20/2026 9:30 AM EST Office Visit [facility] OPTOMETRY [address] [place] [address] Miranda Alba, OD [address] [place] [address] 03/01/2026 11:00 AM EDT Immunization [facility] [address] [place] [phone] documented as of this encounter Visit Diagnoses Not on filedocumented in this encounter Additional Health Concerns Assessment Noted Time PHQ-9 Depression Total Score: 11 025 11:12 AM EDT documented as of this encounter Care Teams Stationary Fireman Relationship Specialty Start Date End Date Karen Regalado MD [address] [place] [phone] PCP - General Internal Medicine 02/03/25 documented as of this encounter
--- OUTSIDE RECORDS SUMMARY | 2025-11-15 09:48 | XMS_ITS | Clinical Summary ---
Author Organization [employer] Address [address] [place] [address] Care Team Providers Care Freezer Laboratory Technician Name Role Phone Karen Regalado MD Primary Care Provider + Allergies No known active allergies Medications norelgestromin- ethinyl estradiol (Xulane) 150-35 MCG/24HR Apply 1 patch each week for 3 weeks, then remove for 1 week. 3 patch 12 10/15/2025 10:17 AM EST 02/03/2025 6 Active clindamycin (Cleocin) 300 MG capsuleIndicati ons:Cellulitis of toe of left foot Take 1 capsule (300 mg) by mouth 4 times daily for 7 days. 28 capsule 11/13/2025 5 Active Active Problems Problem Noted Date Diagnosed Date Erythema pernio 11/13/2025 Assessment & Plan (11/13/2025 11:00 AM EST): Images from the original note were not included. 25 yr old female with recurrent episodes of redness and swelling of left 3rd and fourth toes, described as intermittent, happened earlier this year during the winter (November 2024). Triggered by cold weather, denies pain, described more as itching . On exam both feet are cold to the touch , pedal pulses are symmetrically mildly decreased. There is localized erythema and swelling of 3rd and fourth toes, NO warmth, No tenderness, no fluctuance. Denies [...] present herself to nearest ER if any of those symptoms present -Follow up with PCP 1 week -Asked her to come in if it becomes painful, if any nulcer or drainage develop. -I Rx a short course of Clindamycin 300 mg po q 6 hrs in the rare event thate there is an infectious component 9 Same antibiotic she reported benefit backin November) Encounter for cervical Pap smear with pelvic [...] to switch to IUD. Will refer to gaming manager for IUD placement Contraceptive education 02/03/2025 Assessment & Plan (2025 9:47 AM EDT): I have provided education information regarding contraceptive methods and patient currently doing well on hormonal patch, however she would like a more long-term contraception and has opted to be scheduled for an IUD, I will refer her to our gaming manager. She will continue using hormonal patch for [...] Encounters Date Type Department Care Team Description 11/13/2025 10:00 AM EST Office Visit [facility] [address] [place] [phone] Dano Rutledge MD Chilmarily, initial encounter (Primary Dx); Cellulitis of toe of left foot 11/13/2025 Travel 08/23/2025 Telephone [facility] [address] [place] [phone] Karen Regalado MD Appointment Request 08/23/2025 Telephone [facility] [address] [place] [phone] Karen Regalado MD Stable Lab Letter 08/20/2025 Results Follow-Up [address] [address] Karen Regalado MD Bacterial Vaginosis from Last 3 Months Immunizations Immunization Administration Dates Next Due HPV 9-Valent 08/25/2025 Hep B, adult 08/11/2025 Tdap 08/11/2025 Family [...] is your housing situation today? I have johnnyhilario hughes 02/03/[address] you [...] 6.4 oz) 11/13/2025 10:03 AM EST Height 164.5 cm (5' 4.75 ) 08/11/2025 9:57 AM ED T Body Mass Index 20.19 08/11/2025 9:57 AM EDT Plan of Treatment Upcoming Encounters Date Type Department Care Team (Late st Contact Info) Description 12/01/2025 11:00 AM EST Office Visit [facility] [address] [place] [phone] Karen Regalado MD [address] [place] [address] 01/20/2026 9:30 AM EST Office Visit [facility] [address] [place] [address] Miranda Alba, OD [address] [place] [address] 03/01/2026 11:00 AM EDT Immunization [facility] [address] [place] [address] Health Maintenance Due Date Last Done Comments COVID-19 Vaccine (1 - 2024-2 6 season) 2025 Influenza Vaccine (#1) 2025 Hepatitis B Vaccines (2 of 3 - 19+ 3-dose series) 09/08/2025 08/11/2025 SDOH Screening 02/03/2026 02/03/2025 Depression Monitoring 02/08/2026 08/11/2025 , 08/11/2025 HPV Vaccines (3 - 3-dose series) 02/23/2026 09/29/2025, 08/25/2025 Alcohol/Substance Use Screening 2026 2025 Disability Screening 2026 2025 Family Planning (PISQ) 2026 2025 Tobacco Screening 08/11/2026 08/11/2025 Pap Smear 08/11/2028 08/11/2025 DTaP/Tdap/Td Vaccines (2 - T d [...] Procedure Name Priority Date/Time Associated Diagnosis Comments PAP SMEAR Routine 08/11/2025 10:00 AM EDT Encounter for cervical Pap smear with pelvic exam HEPATITIS PANEL, GENERAL Routine 02/03/2025 10:40 AM EDT Contraceptive education HIV 1/2 ANTIGEN/ANTIBODY, FOURTH GENERATION W/RFL Routine 02/03/2025 10:40 AM EDT Anemia, unspecified type Contraceptive education from Last 3 Months or Most Recently Relevant to Health Maintenance Results * Pap Smear (08/11/2025 10:00 AM EDT) Swab Cervical swab / Unknown 08/11/2025 10:00 AM EDT 08/12/2025 7:46 AM EDT [facility] - 08/16/2025 9:28 AM EDT ----- ------- Name: Nikki August Age/Sex: 25/F : 2000 Unit#: [id number] Attend Dr: Karen Regalado MD Re08/11/25 Status: [facility] Location: [facility] Disch: ----- ------- SPEC : [id number] RECD: 08/12/25-745 STATUS: TAISHA FARNSWORTH NUM: [id number] IMER: 08/11/25-[address] [facility] [address]: Karen Regalado MD ENTERED: 08/12/25 SP TYPE: Pap Smr [facility] DR: ORDERED: Pap Smear Interpretation Satisfactory for evaluation. Negative for intraepithelial lesion or malignancy. No endocervical cells seen. Mild inflammation. Clinical Information LMP: 07/21/2025, contraceptive patch Previous PAP test: Unknown date/findings Other history: Encounter for cervical Pap smear with pelvic exam Material Received ThinPrep-Cervical PAP Disclaimer As of September 16, 2024, the technical services to include automated prescreening performed by the ThinPrep Imaging System, PAP screening and HPV testing will be performed at [facility] (CLIA #[id number]), [address] [place] [phone]. Testing for HPV was performed using the [employer] MAINE [id number] system. The presence of HPV in the female genital tract is associated with a number of diseases, including cervical carcinoma. The HPV DNA high risk pool tests for HPV 31, 33, 35, 39, 45, 51, 52, 56, 58, 59, 66 and 68. The testing for HPV 16 and 18 genotypes has also been performed. A positive result indicates detection of nucleic acid sequences from one or more subtypes, whereas a negative result indicates such sequences were not detected. All professional services are performed by [facility] ([address] [place] [address], [place] [address]; ; CLIA #[id number]). The PAP Test is a screening procedure with the inherent possibility of both false negative and false positive results. Results should be interpreted in the context of historic and current clinical findings. Reliability of the PAP Test is enhanced by performing the test on a regular repetitive basis. ----- ------- Signed (signature on file) SOFIYA Welch (ASCP) 08/16/25 0928 ----- ------- END OF REPORT us Karen Regalado MD LAB CYTOLOGY ORDERABLES Final Result [facility] [address] [place] [address] [phone] Hepatitis Panel, General (02/03/2025 10:40 AM EDT) Hepatitis A IgM Nonreactive Nonreactive [facility] Comment:IgM antibodies to CHACON V not detected; does not exclude earlyacute or recovered HAV infection. ~Hepatitis B Surface Antibody NONREACTIVE Nonreactive [facility] Comment:Nonreactive: < 8.00 mIU/mL Hepatitis B Core Antibody Nonreactive Nonreactive [facility] Hepatitis C Antibody Nonreactive Nonreactive [facility] Comment:Antibodies to HCV no t detected; does not exclude early acuteHCV infection. Hepatitis B Surface Ag Negative Negative [facility] Blood 02/03/2025 10:4 0 AM EDT 02/03/2025 11:45 AM EDT Karen Regalado MD LAB BLOOD ORDERABLES Fin al Result Performing Organization Address [facility] Co de Phone Number [facility] [address] [place] [address] [phone] * HIV-1/2 Antigen and Antibodies, Fourth Generation, with Reflexes (02/03/2025 10:40 AM EDT) HIV AB/AG Nonreactive Nonreactive [facility] Comment:HIV-1 p24 Ag and/or HIV-1/HIV-2 Ab not detected.A test result that is nonreactive does not exclude thepossibility of exposure to or infection with HIV-1 and/orHIV-2. Nonreactive results in this assay for individualswith prior exposure to HIV-1 and/or HIV-2 may be due toantigen and antibody levels that are below the limit ofdetection of this assay.The [employer] HIV Ag/Ab Combo assay result andsupplemental assay results should be interpreted inconjunction with the patient's clinical presentation,history and other laboratory results. If the results areinconsistent with clinical evidence, additional testing issuggested to confirm the result. Blood Venous blood specimen / Unknown 02/03/2025 10:40 AM EDT 02/03/2025 11:45 AM EDT Karen Regalado MD LAB BLOOD ORDERABLES Fin al Result [facility] [address] [place] [address] [phone] from Last 3 Months or Most Recently Relevant to Health Maintenance Insurance [employer] [facility] [employer] Care Teams Freezer Laboratory Technician Relationship Specialty Start Date End Date Karen Regalado MD [address] [place] [phone] PCP - General Internal Medicine 02/03/25
[2025-11-15 11:06] LABS: MANUAL DIFF FLAG NO
[2025-11-15 11:23] LABS: Hematocrit 40.6 % (37.0-47.0); Hemoglobin 12.6 g/dl (12.0-16.0); Imm Gran Abs Auto 0.01 X10*3/uL (0.00-0.03); Imm Gran Pct Auto 0.2 % (0.0-0.4); Lymphocytes Absolute Auto 1.8 X10*3/uL (1.2-4.9); Mean Corpuscular HGB Conc 31.0 g/dl (31.0-35.0); Mean Corpuscular Hemoglobin 26.5 pg (27.0-33.0); Mean Corpuscular Volume 85.3 fL (80.0-98.0); NRBC Abs Auto 0.000 X10*3/uL (0.0-0.012); NRBC Pct Auto 0.0 /100WBC (0.0-0.2); Platelet Count 274 X10*3/uL (160-400); Red Blood Count 4.76 X10*6/uL (4.20-5.50); White Blood Count 5.1 X10*3/uL (4.8-10.8)
[2025-11-15 11:32] LABS: Alanine Aminotransferase 17 U/L (0-31); Albumin Level 4.6 g/dL (3.5-5.0); Alkaline Phosphatase 57 U/L (39-117); Anion Gap 12 (12-20); Aspartate Amino Transferase 20 U/L (5-31); Blood Urea Nitrogen 10 mg/dL (9-16); Calcium 9.4 mg/dL (8.4-10.2); Carbon Dioxide 25 mmol/L (22-29); Chloride 109 mmol/L (96-108); Estimated Glomerular Filt Rate > 60; Potassium 4.1 mmol/L (3.3-5.1); Sodium 142 mmol/L (135-145); Total Protein 7.4 g/dL (6.5-8.0)
== END 2025-11-15 09:00 | disposition home or self-care (01) ==
LOC: HO.HHCL 08:59
PROVIDERS: PCP Internal Medicine; Visit Provider Internal Medicine
DX: T69.1XXA Chilblains, initial encounter (principal)
CPT/HCPCS: 36415; 80053; 83516; 85025; 85652; 86038; 86146; 86147